=== PATIENT | male | born 1975 | race Caucasian/White ===

== ENCOUNTER 2016-11-29 17:57 | Emergency (ER) | payer OTHER ==
[2016-11-29 18:01] VITALS: RESP 20
[2016-11-29] MEDS ORDERED: ORPHENADRINE 30 MG/ML 2 ML VIAL IM STA (18:51)
[2016-11-29] MEDS ORDERED: KETOROLAC 60 MG/2 ML VIAL IM STA (18:51)
[2016-11-29] MEDS ORDERED: ONDANSETRON ODT 4 MG TAB PO STA (18:51)
--- NOTE | 2016-11-29 18:54 | ED ---
General Adult HPI - General Chief complaint: Recheck/Abnormal Lab/Rx Stated complaint: neck pain Time Seen by Provider: 11/29/16 18:39 Source: patient, RN notes reviewed Mode of arrival: wheelchair Limitations: no limitations - History of Present Illness Initial comments: Patient 41-year-old male who presents emergency room today with chief complaint of increased nausea vomiting that began earlier today. Does admit to increased neck pain after an episode of vomiting. Does admit to a history of chronic neck pain. The muscles to the right side are increased. Does admit some mild numbness tingling going down to the right hand. Patient does admit to feeling nauseated. Admits that his daughters at home have some symptoms of nausea vomiting. He denies any other complaints. Patient denies any recent fever, chills, shortness of breath, chest pain, back pain, abdominal pain, dysuria or hematuria, constipation or diarrhea, headaches or visual changes, or any other complaints. - Related Data Previous Rx's Medication Instructions Recorded Ibuprofen [Motrin] 800 mg PO Q6HR PRN #30 tab 11/29/16 Ondansetron Odt [Zofran ODT] 4 mg PO Q8HR PRN #20 tab 11/29/16 Orphenadrine [Norflex] 100 mg PO Q12H #20 tablet.er 11/29/16 Allergies Allergy/AdvReac Type Severity Reaction Status Date / Time No Known Allergies Allergy Verified 11/29/16 18:53 Review of Systems ROS Statement: Those systems with pertinent positive or pertinent negative responses have been documented in the HPI. ROS Other: All systems not noted in ROS Statement are negative. Past Medical History Past Medical History: Mitral Valve Prolapse (MVP), Pneumonia Additional Past Medical History / Comment(s): PALPITAIONS, DDD C1-C2, FX LT ANKLE, LT WRIST CASTED ONLY, chronic neck and back pain uses marijuana History of Any Multi-Drug Resistant Organisms: None Reported Additional Past Surgical History / Comment(s): LT THUMB-TRIGGER FINGER SX. Additional Past Anesthesia/Blood Transfusion Reaction / Comment(s): CLAUSTERPHOBIA Past Psychological History: Depression Additional Psychological History / Comment(s): PT STATED MILD DEPRESSION. 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 Smoking Status: Never smoker Past Alcohol Use History: None Reported Past Drug Use History: Marijuana Additional Drug Use History / Comment(s): OCC MARIJUANA USE-LAST SMOKED FEW DAYS AGO - Past Family History Father Family Medical History: Myocardial Infarction ([place]) Additional Family Medical History / Comment(s): 5 STENTS Mother Family Medical History: Blood Disorder, Mitral Valve Prolapse (MVP) General Exam - General Exam Comments Initial Comments: General: The patient is awake and alert, in no distress, and does not appear acutely ill. Eye: Pupils are equal, round and reactive to light, extra-ocular movements are intact. No nystagmus. There is normal conjunctiva bilaterally. No signs of icterus. Ears, nose, mouth and throat: There are moist mucous membranes and no oral lesions. Neck: The neck is supple, there is no tenderness or JVD. Cardiovascular: There is a regular rate and rhythm. No murmur, rub or gallop is appreciated. Respiratory: Lungs are clear to auscultation, respirations are non-labored, breath sounds are equal. No wheezes, stridor, rales, or rhonchi. Gastrointestinal: Soft, non-distended, non-tender abdomen without masses or organomegaly noted. There is no rebound or guarding present. No CVA tenderness. Bowel sounds are unremarkable. Musculoskeletal: Patient does have normal appearance of cervical, thoracic, lumbar spine. No step-offs form is appreciated. Patient does have increased tearing tenderness to the paravertebral areas rate on the right than the left cervical spine. Strength 5/5. Sensation intact. Pulses equal bilaterally 2+. Neurological: A&O x 3. CN II-XII intact, There are no obvious motor or sensory deficits. Coordination appears grossly intact. Speech is normal. Skin: Skin is warm and dry and no rashes or lesions are noted. Psychiatric: Cooperative, appropriate mood & affect, normal judgment. Limitations: no limitations Course Vital Signs 11/29/16 11/29/16 17:59 19:19 Temperature 98.2 F 98.7 F Pulse Rate 78 62 Respiratory 20 20 Rate Blood Pressure 111/59 108/66 O2 Sat by Pulse 100 100 Oximetry Medical Decision Making - Medical Decision Making Patient reexamined at this time shows no signs of distress. Does not that his nausea is improved and neck is feeling better. He declined any x-rays of his neck here in the emergency room. Patient will be discharged home on muscle relaxant, anti-inflammatories Zofran for nausea. Advised return to emergency room if symptoms increase worsen or for any other concerns. Disposition Clinical Impression: Nausea & vomiting, Neck pain Disposition: HOME SELF-CARE Condition: Good Instructions: Acute Nausea and Vomiting (ED) Additional Instructions: Please use medication as discussed. Please follow-up with family doctor in the next 2 days of symptoms have not improved. Please return to emergency room if the symptoms increase or worsen or for any other concerns. Prescriptions: Ibuprofen [Motrin] 800 mg PO Q6HR PRN #30 tab PRN Reason: Pain Ondansetron Odt [Zofran ODT] 4 mg PO Q8HR PRN #20 tab PRN Reason: Nausea Orphenadrine [Norflex] 100 mg PO Q12H #20 tablet.er Time of Disposition: 19:29
[2016-11-29 19:22] VITALS: BP 108/66; PULSE 62; TEMP 98.7
== END 2016-11-29 19:56 | disposition home or self-care (01) ==
LOC: EC 17:57
DX: M54.2 Cervicalgia (principal); R11.2 Nausea with vomiting, unspecified; R20.0 Anesthesia of skin
CPT/HCPCS: 99283; 96372 ×2; J2360; J1885

== ENCOUNTER 2016-12-23 13:24 | Observation (INO) | payer OTHER ==
[2016-12-23] MEDS ORDERED: ASPIRIN 325 MG TAB PO STA (14:53)
[2016-12-23] MEDS ORDERED: fentaNYL (PF) 50 MCG/ML 2 ML AMP IV ONE (14:54)
[2016-12-23 15:21] LABS: Basophils % (A) 0 %; CH 31.2; CHCM 34.5; Eosinophils # (A) 0.1 k/uL (0-0.7); Eosinophils % (A) 2 %; HCT 45.3 % (39.0-53.0); HDW 2.41; HGB 15.6 gm/dL (13.0-17.5); Luc # (Auto) 0.12; Luc % (Auto) 2; Lymphocytes # (A) 1.5 k/uL (1.0-4.8); Lymphocytes % (A) 23 %; MCH 31.2 pg (25.0-35.0); MCHC 34.4 g/dL (31.0-37.0); MCV 90.7 fL (80.0-100.0); Mean Platelet Volume 9.1; Monocytes # (A) 0.3 k/uL (0-1.0); Monocytes % (A) 4 %; Neutrophils # (A) 4.5 k/uL (1.3-7.7); Neutrophils % (A) 69 %; RDW 12.2 % (11.5-15.5); WBC 6.6 k/uL (3.8-10.6); WBC (Perox) 6.51
[2016-12-23 15:30] LABS: Partial Thromboplastin Time 22.9 sec (22.0-30.0); Prothrombin Time 10.5 sec (9.0-12.0)
[2016-12-23 15:31] LABS: Anion Gap 5 mmol/L; Blood Urea Nitrogen 17 mg/dL (9-20); Calcium 9.8 mg/dL (8.4-10.2); Carbon Dioxide 27 mmol/L (22-30); Chloride 107 mmol/L (98-107); Glucose 88 mg/dL (74-99); Non-African American GFR(MDRD) >60 (>60 ml/min/1.73 sqM); Potassium 4.1 mmol/L (3.5-5.1); Sodium 139 mmol/L (137-145)
--- NOTE | 2016-12-23 15:36 | CT ---
EXAMINATION TYPE: CT brain wo con DATE OF EXAM: 12/23/2016 3:23 PM COMPARISON: 12/19/2015 HISTORY: Rt sided weakness CT DLP: 1021.2 mGycm Automated exposure control for dose reduction was used. FINDINGS: The ventricles have normal size. There is no mass effect nor midline shift. There is no sign of intra cranial hemorrhage. The calvarium is intact. IMPRESSION: Negative unenhanced head CT scan. No adverse change compared to last exam.
--- NOTE | 2016-12-23 15:37 | XR ---
EXAMINATION TYPE: XR chest 2V DATE OF EXAM: 12/23/2016 3:25 PM COMPARISON: 12/29/2015 HISTORY: Chest pain TECHNIQUE: Frontal and lateral views of the chest are obtained. FINDINGS: Heart and mediastinum are normal. Lungs are clear. Diaphragm is normal. Bony thorax appear s normal. IMPRESSION: Normal chest. No change.
[2016-12-23] MEDS ORDERED: KETOROLAC 30 MG/ML 1 ML VIAL IVP PRN (16:42)
[2016-12-23] MEDS ORDERED: MORPHINE SULFATE 4 MG/ML SYRINGE IV PRN (16:42)
[2016-12-23] MEDS ORDERED: NALOXONE 0.4 MG/ML 1 ML VIAL IV PRN (16:42)
[2016-12-23] MEDS ORDERED: ONDANSETRON 4 MG/2 ML VIAL IVP PRN (16:42)
--- NOTE | 2016-12-23 16:42 | ED ---
General Adult HPI - General Chief complaint: Chest Pain Stated complaint: Chest Pain Time Seen by Provider: 12/23/16 14:26 Source: patient Mode of arrival: wheelchair Limitations: no limitations - History of Present Illness Initial comments: 41-year-old male with a significant past medical history of CVA and myocardial infarctions presented for evaluation of right-sided weakness for the last 4 days and substernal chest pain for the last 2 days. He states that about a year ago he had a CVA resulting in right-sided weakness. Since then he has had improvement in his weakness but never followed up with a neurologist. 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 He states the chest pain is substernal without any radiation and he described as a pressure for which he has not tried any treatments. There is associated shortness of breath and nausea but no vomiting. He further states he has not been following up with a peanut grader since his [place]. - Related Data Home Medications Medication Instructions Recorded Confirmed No Known Home Medications [No 12/23/16 12/23/16 Known Home Medications] Allergies Allergy/AdvReac Type Severity Reaction Status Date / Time No Known Allergies Allergy Verified 12/23/16 14:57 Review of Systems ROS Statement: Those systems with pertinent positive or pertinent negative responses have been documented in the HPI. ROS Other: All systems not noted in ROS Statement are negative. Constitutional: Denies: fever, chills Eyes: Denies: eye pain, eye discharge ENT: Denies: ear pain, throat pain Respiratory: Reports: dyspnea. Denies: cough, wheezes, hemoptysis Cardiovascular: Reports: chest pain, palpitations, dyspnea on exertion. Denies : orthopnea, edema, syncope Endocrine: Denies: fatigue, polydipsia, polyuria Gastrointestinal: Reports: nausea. Denies: abdominal pain, vomiting, diarrhea, constipation Genitourinary: Denies: urgency, dysuria Musculoskeletal: Denies: back pain, myalgia Skin: Denies: rash, lesions Neurological: Denies: headache, weakness Psychiatric: Denies: anxiety, depression Past Medical History Past Medical History: CVA/TIA, Mitral Valve Prolapse (MVP), Pneumonia Additional Past Medical History / Comment(s): PALPITAIONS, DDD C1-C2, FX LT ANKLE, LT WRIST CASTED ONLY, chronic neck and back pain uses marijuana History of Any Multi-Drug Resistant Organisms: None Reported Additional Past Surgical History / Comment(s): LT THUMB-TRIGGER FINGER SX. Additional Past Anesthesia/Blood Transfusion Reaction / Comment(s): CLAUSTERPHOBIA Past Psychological History: Depression Additional Psychological History / Comment(s): PT STATED MILD DEPRESSION. 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 Smoking Status: Never smoker Past Alcohol Use History: None Reported Past Drug Use History: Marijuana Additional Drug Use History / Comment(s): OCC MARIJUANA USE-LAST SMOKED FEW DAYS AGO - Past Family History Father Family Medical History: Myocardial Infarction ([place]) Additional Family Medical History / Comment(s): 5 STENTS Mother Family Medical History: Blood Disorder, Mitral Valve Prolapse (MVP) General Exam Limitations: no limitations General appearance: alert, in no apparent distress Head exam: Present: atraumatic, normocephalic, normal inspection Eye exam: Present: normal appearance, PERRL, EOMI. Absent: scleral icterus, conjunctival injection, periorbital swelling ENT exam: Present: normal exam, mucous membranes moist Neck exam: Present: normal inspection. Absent: tenderness, meningismus, lymphadenopathy Respiratory exam: Present: normal lung sounds bilaterally. Absent: respiratory distress, wheezes, rales, rhonchi, stridor Cardiovascular Exam: Present: regular rate, normal rhythm, normal heart sounds. Absent: systolic murmur, diastolic murmur, rubs, gallop, clicks GI/Abdominal exam: Present: soft, normal bowel sounds. Absent: distended, tenderness, guarding, rebound, rigid Rectal exam: Present: deferred Extremities exam: Present: normal inspection, full ROM, normal capillary refill. Absent: tenderness, pedal edema, joint swelling, calf tenderness Back exam: Present: normal inspection Neurological exam: Present: alert, oriented X3, CN II-XII intact, normal gait, motor sensory deficit, reflexes normal, other (NIH score of 2) Expanded Neurological exam: Absent: inattentive, memory loss-remote event, memory loss- recent event, ataxia, receptive aphasia, expressive aphasia, total aphasia, tremor, protecting the airway Patient oriented to: Present: person, place, time Speech: Present: fluid speech Cranial nerves: EOM's Intact: Normal, Tongue Deviation: Normal, Facial Sensation : Normal, Facial Palsy with Forehead Movement: Normal, Facial Palsy without Forehead Movement: Normal Eye Response: (4) open spontaneously Motor Response: (6) obeys commands Verbal Response: (5) oriented Psychiatric exam: Present: normal affect, normal mood Skin exam: Present: warm, dry, intact, normal color. Absent: rash Course Vital Signs 12/23/16 12/23/16 12/23/16 13:42 17:05 17:55 Temperature 98.1 F 98.1 F 98 F Pulse Rate 94 60 74 Respiratory 20 20 16 Rate Blood Pressure 108/73 107/55 110/71 O2 Sat by Pulse 99 100 100 Oximetry Medical Decision Making - Medical Decision Making 41-year-old male with past medical history of CVA and [place] presented for evaluation of right-sided weakness for the last 4 days and social chest pain for the last 2 days. He has not been following up with his neurologist or peanut grader since his acute events. On physical examination he does have weakness on the right side compared to the left NIH score of 2. Given that his symptoms started 4 days ago he is outside the treatment range with TPA. We'll obtain CT head, chest x-ray, EKG, labs, and provided aspirin and IV fluids. Labs revealed no significant abnormalities. CT head showed no acute process. Chest x-ray showed no acute process. Patient was reevaluated and had some improvement in his symptoms with fentanyl and aspirin. Given the significance of his symptoms and his past medical history will admit for further evaluation and treatment. Primary team was updated on the status of the patient and accepted admission with request for consults with neurology and cardiology. Patient was informed of all these plans and agreed. Admission order placed in bed request submitted. - Lab Data Result diagrams: 12/23/16 15:03 12/23/16 15:03 Lab Results 12/23/16 12/23/16 12/23/16 Range/Units 15:03 15:03 15:03 WBC 6.6 (3.8-10.6) k/uL RBC 5.00 (4.30-5.90) m/uL Hgb 15.6 (13.0-17.5) gm/dL Hct 45.3 (39.0-53.0) % MCV 90.7 (80.0-100.0) fL MCH 31.2 (25.0-35.0) pg MCHC 34.4 (31.0-37.0) g/dL RDW 12.2 (11.5-15.5) % Plt Count 155 (150-450) k/uL Neutrophils % 69 % Lymphocytes % 23 % Monocytes % 4 % Eosinophils % 2 % Basophils % 0 % Neutrophils # 4.5 (1.3-7.7) k/uL Lymphocytes # 1.5 (1.0-4.8) k/uL Monocytes # 0.3 (0-1.0) k/uL Eosinophils # 0.1 (0-0.7) k/uL Basophils # 0.0 (0-0.2) k/uL PT (9.0-12.0) sec INR (<1.1) APTT (22.0-30.0) sec Sodium 139 (137-145) mmol/L Potassium 4.1 (3.5-5.1) mmol/L Chloride 107 (98-107) mmol/L Carbon Dioxide 27 (22-30) mmol/L Anion Gap 5 mmol/L BUN 17 (9-20) mg/dL Creatinine 1.00 (0.66-1.25) mg/dL Est GFR (MDRD) Af Amer >60 (>60 ml/min/1.73 sqM) Est GFR (MDRD) Non-Af >60 (>60 ml/min/1.73 sqM) Glucose 88 (74-99) mg/dL Calcium 9.8 (8.4-10.2) mg/dL Troponin I (0.000-0.034) ng/mL NT-Pro-B Natriuret Pep pg/mL Influenza Type A RNA Not Detected (Not Detectd) Influenza Type B (PCR) Not Detected (Not Detectd) 12/23/16 12/23/16 12/23/16 Range/Units 15:03 15:03 15:03 WBC (3.8-10.6) k/uL RBC (4.30-5.90) m/uL Hgb (13.0-17.5) gm/dL Hct (39.0-53.0) % MCV (80.0-100.0) fL MCH (25.0-35.0) pg MCHC (31.0-37.0) g/dL RDW (11.5-15.5) % Plt Count (150-450) k/uL Neutrophils % % Lymphocytes % % Monocytes % % Eosinophils % % Basophils % % Neutrophils # (1.3-7.7) k/uL Lymphocytes # (1.0-4.8) k/uL Monocytes # (0-1.0) k/uL Eosinophils # (0-0.7) k/uL Basophils # (0-0.2) k/uL PT 10.5 (9.0-12.0) sec INR 1.0 (<1.1) APTT 22.9 (22.0-30.0) sec Sodium (137-145) mmol/L Potassium (3.5-5.1) mmol/L Chloride (98-107) mmol/L Carbon Dioxide (22-30) mmol/L Anion Gap mmol/L BUN (9-20) mg/dL Creatinine (0.66-1.25) mg/dL Est GFR (MDRD) Af Amer (>60 ml/min/1.73 sqM) Est GFR (MDRD) Non-Af (>60 ml/min/1.73 sqM) Glucose (74-99) mg/dL Calcium (8.4-10.2) mg/dL Troponin I <0.012 (0.000-0.034) ng/mL NT-Pro-B Natriuret Pep 28 pg/mL Influenza Type A RNA (Not Detectd) Influenza Type B (PCR) (Not Detectd) Disposition Clinical Impression: Chest pain, Right sided weakness Disposition: ADMITTED IP TO THIS [facility] Decision to Admit Reason: Admit from EC Decision Date: 12/23/16 Decision Time: 16:42
[2016-12-23] MEDS: 0.9% NACL WITH KCL 20 MEQ/L 1,000 ML IV SCH (18:02)
[2016-12-23] MEDS ORDERED: ALPRAZolam 0.25 MG TAB PO PRN (22:56)
[2016-12-23] MEDS ORDERED: TEMAZEPAM 15 MG CAP PO PRN (22:58)
[2016-12-23] MEDS ORDERED: ACETAMINOPHEN TAB 500 MG TAB PO PRN (22:58)
[2016-12-23] MEDS: HYDROcodone/APAP 5-325MG 1 EACH TAB PO PRN (23:12)
[2016-12-24 06:40] LABS: Basophils % (A) 1 %; CH 30.8; CHCM 33.9; Eosinophils # (A) 0.3 k/uL (0-0.7); Eosinophils % (A) 6 %; HCT 43.5 % (39.0-53.0); HDW 2.33; HGB 14.6 gm/dL (13.0-17.5); Luc # (Auto) 0.14; Luc % (Auto) 2; Lymphocytes # (A) 1.8 k/uL (1.0-4.8); Lymphocytes % (A) 31 %; MCH 30.5 pg (25.0-35.0); MCHC 33.6 g/dL (31.0-37.0); MCV 90.9 fL (80.0-100.0); Mean Platelet Volume 8.1; Monocytes # (A) 0.2 k/uL (0-1.0); Monocytes % (A) 4 %; Neutrophils # (A) 3.3 k/uL (1.3-7.7); Neutrophils % (A) 56 %; RBC 4.79 m/uL (4.30-5.90); RDW 12.3 % (11.5-15.5); WBC 5.9 k/uL (3.8-10.6)
[2016-12-24 06:57] LABS: Anion Gap 9 mmol/L; Blood Urea Nitrogen 18 mg/dL (9-20); Calcium 9.1 mg/dL (8.4-10.2); Carbon Dioxide 27 mmol/L (22-30); Chloride 107 mmol/L (98-107); Cholesterol 135 mg/dL (<200); Glucose 89 mg/dL (74-99); HDL Cholesterol 37 mg/dL (40-60); Magnesium 2.1 mg/dL (1.6-2.3); Non-African American GFR(MDRD) >60 (>60 ml/min/1.73 sqM); Potassium 4.1 mmol/L (3.5-5.1); Sodium 143 mmol/L (137-145); Triglycerides 63 mg/dL (<150)
[2016-12-24] MEDS ORDERED: DOBUTamine DRIP for NUC MED 500 MG in DEXTROSE/WATER 1 250ML.BAG IV ONE (08:14)
--- NOTE | 2016-12-24 10:45 | HP ---
DATE OF ADMISSION: 12/23/2016. CHIEF COMPLAINT: Weakness on the right side of the body and chest pain. HISTORY OF PRESENT ILLNESS: This 41-year-old gentleman with a past medical history of TIA, history of mitral prolapse, history of palpitations, history of THC, history of trigger finger, history of depression, being followed by Dr. Walter in the outpatient setting, was noted to have numbness and weakness of the right side of the body. Patient was unable to move the right. The patient also has chest pain, which was diffusely felt in the anterior part of the chest. The patient came to [facility] and was admitted for further evaluation. CT scan did not show acute abnormality. Troponins negative. Influenza negative also. No previous history or family history of stroke. PAST MEDICAL HISTORY: History of CVA, TIA, mitral valve prolapse, history of pneumonia, palpitation, depression not otherwise specified. MEDICATIONS PRIOR TO ADMISSION: None. ALLERGIES: None. FAMILY HISTORY: History of myocardial infarction and stents in the family. SOCIAL HISTORY: No history of smoking, no significant alcohol use. Medical marijuana. REVIEW OF SYSTEMS: ENT: No diminished hearing. CARDIOVASCULAR: No angina. Chest pain as mentioned earlier. RESPIRATORY: No cough. GI: No nausea or vomiting. : No dysuria. NERVOUS SYSTEM: No numbness or weakness. ALLERGY/IMMUNOLOGY: No asthma or hayfever. MUSCULOSKELETAL: As mentioned earlier. HEMATOLOGY/ONCOLOGY: As mentioned. ENDOCRINE: No history of diabetes. CONSTITUTIONAL: Negative. DERMATOLOGIC: Negative. PSYCHIATRIC: As mentioned earlier. PHYSICAL EXAMINATION: GENERAL: The patient is alert, oriented x3. VITAL SIGNS: Pulse 60, blood pressure 99/66, respirations 16, temperature 99, pulse 99% on room air. HEENT: Conjunctivae normal. Oral mucosa moist. NECK: No JVD. No lymph node enlargement. CARDIOVASCULAR: S1 and S2, muffled. No S3 or S4. Breath sounds are diminished at the bases. No rhonchi, no crackles. ABDOMEN: Soft, nontender. EXTREMITIES: Legs no edema. NERVOUS SYSTEM: As aforementioned. Power and sensation grossly intact. Minimal weakness in the right upper and lower limbs present, 3/4. Reflexes are diminished. SKIN: No ulcer or rash. LYMPHATICS: No lymph nodes palpable in the neck, axillae or groin. LABS: CBC within normal limits. INR 1. CMP and influenza negative. ASSESSMENT: 1. Right-sided weakness, rule out transient ischemic attack. 2. Chest pain for evaluation, possibly musculoskeletal. 3. History of mitral valve prolapse. 4. History of cerebrovascular accident, transient ischemic attack. 5. History of pneumonia. 6. History of palpitations. 7. History of claustrophobia. 8. History of depression. 9. History of THC. 10. FULL CODE. RECOMMENDATIONS AND DISCUSSION: In this 41-year-old gentleman who presented with multiple complex medical issues, we will monitor the patient closely, continue the current medications and symptomatic treatment. Otherwise, at this time I recommend to continue with current medication and antiplatelet agents. Neuro workup with Neurology and Cardiology consultation. Guarded prognosis because of multiple complex medical issues. Further recommendations to follow. MTDD
[2016-12-24 11:05] LABS: Appearance,Urine Clear (Clear); Bilirubin,Urine Negative (Negative); Glucose,Urine (UA) Negative (Negative); Ketones,Urine Negative (Negative); Leukocyte Esterase,Urine Negative (Negative); Mucus,Urine Many /hpf; Nitrite,Urine Negative (Negative); PH, Urine 6.5 (5.0-8.0); Particle Count 12400; Protein,Urine 1+ (Negative); Specific Gravity,Urine 1.026 (1.001-1.035); Sperm,Urine Occasional /hpf; Squamous Epithelial Cell,Urine <1 /hpf (0-4); UA Billing (MACRO vs. MICRO) MICRO; Urobilinogen,Urine <2.0 mg/dL (<2.0); WBC,Urine 1 /hpf (0-5)
--- NOTE | 2016-12-24 14:47 | CONS ---
DATE OF CONSULTATION: Wilder Leiva is a 41-year-old young man admitted to the hospital by Dr. Maxwell. Consultation requested by Dr. Maxwell. Consultation is needed for cardiac evaluation and treatment. Patient is admitted to the hospital with right-sided weakness and precordial chest pain for the last 2 to 3 years. Patient is not on any medications prior to admission. Patient apparently claims he is pretty active and exercises on a regular basis. Patient has depression and dyslexia. He claims to have a similar right-sided weakness about 8/10 which improved completely, to return only in the last [address] of the brain was normal without any evidence of acute bleed or hypodensity or any aspirate. He is a nonsmoker, but uses marijuana. Patient denies any drug abuse. Patient claims has been having chest pressure, precordial area on a scale of 1 to 10, 4/10, constant pressure, mild percussion, does not decrease which is there all the time for the last 3 or 4 days which appears to be unlikely cardiac or anginal type of symptoms. Patient while in the hospital has been on alprazolam, hydrocodone, Toradol, morphine, Naloxone, potassium, Restoril. HOME MEDICATIONS: None. REVIEW OF SYSTEMS: Essentially unremarkable other than what is stated in the presenting illness. The patient apparently had right-sided weakness which improved completely and returned back into normal 2 to 3 days ago and history of mitral valve prolapse. History of [place] in the past, never been treated or seen any physician. Patient's lipid panels are within normal limits. The LDL of 85, total cholesterol of 135, triglycerides 163, HDL is low 37. EKG shows normal sinus rhythm, normal ST-T waves. Troponin x1 is negative. Physical examination revealed well-developed, well-nourished 41-year-old gentleman, not in acute distress, oriented x3 with a pulse rate of 60 beats per minute and regular, blood pressure 99/60, respirations of 16. Head normocephalic. HEENT unremarkable. Neck is supple. No thyroid enlargement. No bruit noted. Good carotid upstroke bilaterally. Chest is symmetrical. CARDIAC EXAMINATION: Regular rate and rhythm, S1 and S2. Lungs are clinically clear to auscultation and percussion. Abdomen is soft, no organomegaly. Active bowel sounds. EXTREMITIES: Peripheral pulses. No pedal edema. 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 Patient's troponin x1 is negative, ( ) is unremarkable. ASSESSMENT: 1. Prolonged precordial chest pressure, atypical chest pain. 2. History of mitral valve prolapse. 3. Right-sided weakness. RECOMMENDATIONS: Will get an echocardiogram to assess LV function and possibly dobutamine stress echocardiogram without any cardiac source of any ischemia which is really low probability and will have a neurologist take care of the neurological problems.
--- NOTE | 2016-12-24 15:34 | ECHOS ---
DATE OF SERVICE: 12/24/2016 AGE: 41Y SEX: M HT: 69" WT: 161 lbs. Protocol Glenn: Others: Stage: Dur. of Exercise: 10 *Heart Rate Blood Pressure *Rest: 55 Rest: 107/60 * *Max. Achieved: 154 Maximum BP: 160/49 85% PMHR: 154 100% PMHR: 181 *METS: INDICATIONS: Chest pain. MEDICATIONS: None. Baseline rhythm is sinus mechanism, rate of 55, normal axis and intervals. Normal electrocardiogram. Baseline blood pressure 107/60 mmHg. Patient received an infusion of dobutamine per protocol reaching peak rate of 154 beats per minute, which is equal to 85% maximum predicted heart rate; peak blood pressure 160/49 millimeters Hg. Electrocardiograph monitoring revealed no evidence of diagnostic ischemic ST deviation. FINDINGS: Baseline echocardiogram revealed normal wall motion. At peak exercise there was normal wall motion augmentation with no hypokinesis or dyskinesis. CONCLUSION: 1. Normal electrocardiograph response to dobutamine infusion. 2. Normal stress echocardiogram with no evidence of stress-induced ischemia.
[2016-12-24] MEDS: 0.9% NACL WITH KCL 20 MEQ/L 1,000 ML IV SCH (16:36)
--- NOTE | 2016-12-24 19:38 | P.CNNES ---
History of Present Illness Consult date: 12/24/16 Reason for Consult: Patient with right sided weakness. History of Present Illness: This patient is a 41-year-old right-handed white male who was admitted to hospital yesterday with symptoms of severe chest pain and right-sided weakness. Patient states that he suffered a stroke a year ago in October 2015. This caused him to have significant right-sided weakness as well as speech impairment. He recovered from this over the last year and was doing quite well until about 3 days ago when he started to notice slurring of his speech and very slow speech output. This was noted by his girlfriend who was there at bedside. She states is speech still is not normal. He was advised after her stroke to take one aspirin daily but has not been taking any medications. He states that since the last 3 days he has noted right arm weakness which is the same type of weakness he first experienced a year ago when he suffered a stroke. The patient was also seen today by cardiology for severe chest pain. He was found to have evidence of mitral valve prolapse. He was sent for echocardiogram today and we are waiting those results. 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 He said due to the weakness of his right arm now he feels he is unable to do any work. We have recommended that he be further evaluated for possibility of left hemispheric TIA versus stroke. He was sent for a computed tomography scan of the brain yesterday which was reported negative and no evidence of any adverse change compared to last exam done on 12/19/2015. The patient states he has not been taking any medications. We suggested that he should be on 1 aspirin daily for secondary stroke prevention. He states he will start on this immediately. Neurology is now been consulted for further evaluation and recommendations. Review of Systems Constitutional: Denies chills, Denies fever Eyes: denies blurred vision, denies pain Ears, nose, mouth and throat: Denies headache, Denies sore throat Cardiovascular: Reports orthopnea, Denies chest pain, Denies shortness of breath Respiratory: Denies cough Gastrointestinal: Denies abdominal pain, Denies diarrhea, Denies nausea, Denies vomiting Musculoskeletal: Denies myalgias Integumentary: Denies pruritus, Denies rash Neurological: Reports change in speech, Reports motor disturbance, Reports paresthesias, Denies numbness, Denies weakness Psychiatric: Denies anxiety, Denies depression Endocrine: Denies fatigue, Denies weight change Past Medical History Past Medical History: CVA/TIA, Mitral Valve Prolapse (MVP), Pneumonia Additional Past Medical History / Comment(s): PALPITAIONS, DDD C1-C2, FX LT ANKLE, LT WRIST CASTED ONLY, chronic neck and back pain uses marijuana History of Any Multi-Drug Resistant Organisms: None Reported Additional Past Surgical History / Comment(s): LT THUMB-TRIGGER FINGER SX. Past Anesthesia/Blood Transfusion Reactions: No Reported Reaction Additional Past Anesthesia/Blood Transfusion Reaction / Comment(s): CLAUSTERPHOBIA Past Psychological History: Depression Additional Psychological History / Comment(s): PT STATED MILD DEPRESSION. 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 Smoking Status: Never smoker Past Alcohol Use History: None Reported Past Drug Use History: Marijuana Additional Drug Use History / Comment(s): OCC MARIJUANA USE-LAST SMOKED FEW DAYS AGO - Past Family History Father Family Medical History: Myocardial Infarction ([place]) Additional Family Medical History / Comment(s): 5 STENTS Mother Family Medical History: Blood Disorder, Mitral Valve Prolapse (MVP) Medications and Allergies Home Medications Medication Instructions Recorded Confirmed Type No Known Home Medications [No 12/23/16 12/23/16 History Known Home Medications] Allergies Allergy/AdvReac Type Severity Reaction Status Date / Time No Known Allergies Allergy Verified 12/23/16 14:57 Physical Examination - Vital Signs Vital Signs: Vital Signs Temp Pulse Pulse Resp BP BP Pulse Ox 12/24/16 16:00 97.6 F 74 18 108/66 98 12/24/16 12:00 97.0 F L 69 18 100/67 98 12/24/16 08:00 96.8 F L 66 18 112/76 98 12/24/16 04:00 97.9 F 56 L 18 84/52 98 12/24/16 00:00 98.2 F 60 16 95/50 98 12/23/16 20:00 99 F 60 16 99/60 99 12/23/16 18:38 98.2 F 71 16 120/80 97 12/23/16 17:55 98 F 74 16 110/71 100 Intake and Output 12/24/16 12/24/16 12/24/16 06:59 14:59 22:59 Intake Total 0 Balance 0 Intake: Oral 0 Other: Weight 73.2 kg - Constitutional General appearance: average body habitus, cooperative - EENT EENT: mucous membranes moist - Respiratory Respiratory: lungs clear, normal breath sounds - Cardiovascular Cardiovascular: regular rate, normal S1, normal S2 Extremities: no peripheral edema bilaterally - Gastrointestinal Gastrointestinal: normoactive bowel sounds - Integumentary Integumentary: normal - Neurologic Cranial nerve examination: PERRL, EOMI, VFF, V1/V2/V3 grossly intact, face symmetric, tongue midline, intact gag reflex, intact corneal reflex, normal palatal elevation Speech examination: motor aphasia Sensorimotor examination: intact Motor examination - right side: 3/5: wrist extension, nursery rn, 4/5: biceps, triceps , wrist flexion, hip flexors, knee extensors, dorsiflexion, toe extension (EHL) , plantarflexion Motor examination - left side: 5/5: biceps, triceps, wrist flexion, wrist extension, nursery rn, hip flexors, knee extensors, dorsiflexion, toe extension (EHL) , plantarflexion Detailed sensory examination: intact Reflex and gait examination: intact Reflexes: 1+: ankle, bicep, knee, tricep - Musculoskeletal Musculoskeletal: no pain - Psychiatric Psychiatric: mood/affect appropriate, cooperative Results - Laboratory Findings CBC and BMP: 12/24/16 06:19 12/24/16 06:19 Abnormal Lab Findings: Abnormal Labs 12/24/16 12/24/16 12/24/16 06:19 06:19 10:25 Plt Count 142 L HDL Cholesterol 37 L Urine Protein 1+ H Urine Mucus Many H Urine Sperm Occasional H Urine Opiates Screen Detected H U Marijuana (THC) Screen Detected H Assessment and Plan (1) TIA involving left internal carotid artery Status: Acute Code(s): G45.1 - CAROTID ARTERY SYNDROME (HEMISPHERIC) (2) Left acute arterial ischemic stroke, MCA (middle cerebral artery) Status: Acute Code(s): I63.512 - CEREB INFRC D/T UNSP OCCLS OR STENOS OF LEFT MID CEREB ART (3) Chest pain Status: Acute Code(s): R07.9 - CHEST PAIN, UNSPECIFIED (4) Expressive aphasia Status: Acute Code(s): R47.01 - APHASIA Plan: This patient is a 41-year-old male admitted with 3 day history of significant right-sided hemiparesis and weakness. Patient had a history of stroke in October 2015 which left him with right-sided hemiparesis. He made very good recovery from his stroke but 3 days ago developed new onset of right arm and leg weakness. He also had severe chest pain and was brought into the emergency room yesterday for further evaluation. He underwent a computed tomography scan of the brain which failed to reveal any acute changes. Was read as negative unenhanced computed tomography scan of the brain with no adverse changes compared to previous exam done on 11/20/2015. Patient was essentially admitted to the hospital. Since his last stroke he has not been taking any aspirin. We would recommend he be started on one baby aspirin daily for secondary stroke prevention. We would recommend MRI of the brain for further evaluation. He would also benefit from physical therapy consultation. He is being evaluated by cardiology for severe atypical chest pain. We're waiting further recommendations from cardiology. His overall prognosis at this time remains very guarded. We will continue close neurological follow-up for the patient. Time with Patient: Greater than 30
[2016-12-24] MEDS: ASPIRIN 81 MG CHEW PO SCH (20:38)
--- NOTE | 2016-12-24 22:20 | PN ---
DATE OF SERVICE: 12/24/2016 This 41-year-old gentleman who was admitted with weakness over the right side of the body and chest pain is being scheduled to have a stress test today. Neurology evaluation in progress. No fever. No cough. On exam, alert and oriented x3. Pulse 74, blood pressure 108/66, respiration 18, temperature 97.6, pulse ox 98% on room air. HEENT: Conjunctivae normal. NECK: No jugular venous distention. CARDIOVASCULAR SYSTEM: S1, S2 muffled. RESPIRATORY SYSTEM: Breath sounds diminished at the bases. No rhonchi. No crackles. ABDOMEN: Soft, non-tender. LEGS: No edema. No swelling. NERVOUS SYSTEM: Minimal weakness on the right side present. LABS: HDL is 37. Otherwise, urine THC is positive. ASSESSMENT: 1. Weakness of the right side; possible acute transient ischemic attack. 2. Chest pain for evaluation; rule out coronary artery disease; possibly musculoskeletal. 3. History of mitral valve prolapse. 4. Cerebrovascular accident, transient ischemic attack. 5. History of pneumonia. 6. History of palpitations. 7. History of claustrophobia. 8. History of depression. 9. History of tetrahydrocannabinol. 10. FULL CODE. RECOMMENDATIONS AND DISCUSSION: I recommend to continue with the current medications, continue with symptomatic treatment. Otherwise, stress test. Closely monitor. Follow with Cardiology. Guarded prognosis. Further recommendations to follow.
[2016-12-24] MEDS: HYDROcodone/APAP 5-325MG 1 EACH TAB PO PRN (22:55)
--- NOTE | 2016-12-25 07:46 | MR ---
EXAMINATION TYPE: MR brain wo con DATE OF EXAM: 12/25/2016 6:36 AM COMPARISON: NONE HISTORY: Right sided weakness Multiplanar and multispin-echo imaging of the brain was performed . The ventricles, basal cisterns and sulci overlying the cerebral convexities are within normal limits. There is no evidence for midline shift or mass effect. Acute intracranial hemorrhage or extra-axial collection is not evident. The brain parenchyma reveals no abnormal increased signal. No acute edema is identified. The paranasal sinuses and mastoid air cells are well-aerated. Small incidental mucous retention cyst left maxillary sinus. IMPRESSION: Unremarkable MRI of the brain.
[2016-12-25] MEDS ORDERED: SODIUM CHLORIDE 0.9% 1,000 ML IV SCH (08:30)
[2016-12-25] MEDS: ASPIRIN 81 MG CHEW PO SCH (09:05)
--- NOTE | 2016-12-25 12:14 | P.PN ---
Subjective Principal diagnosis: Chest pain This is a 41-year-old patient seen in consultation yesterday by Dr. Simmons. Patient presented to the hospital with symptoms of right-sided weakness with associated precordial chest pain. He underwent a dobutamine echocardiographic study yesterday that was negative for any reversible ischemia. His troponins have been negative, EKG did not show significant changes. Currently in neurology workup is in progress. Objective - Vital Signs Vital signs: Vital Signs Temp 97.0 F L 12/25/16 11:20 Pulse 73 12/25/16 11:20 Resp 14 12/25/16 11:20 BP 106/67 12/25/16 11:20 Pulse Ox 98 12/25/16 11:20 Intake & Output 12/24/16 12/25/16 12/25/16 18:59 06:59 18:59 Intake Total 444 550 90 Balance 444 550 90 Weight 73.1 kg Intake: IV 550 0.9% NaCl with KCl 20 Meq 550 /l 1,000 ml @ 50 mls/hr IV .Q20H [facility] Rx#: [id number] Oral 444 90 Other: Voiding Method Toilet Toilet # Voids 1 0 - Exam PHYSICAL EXAMINATION: HEENT: Head is atraumatic, normocephalic. Pupils equal, round. Neck is supple. There is no elevated jugular venous pressure. HEART EXAMINATION: Heart S1, S2 normal. No murmur or gallop heard. CHEST EXAMINATION: Lungs are clear to auscultation and precussion. No chest wall tenderness is noted on palpation or with deep breathing. ABDOMEN: Soft, nontender. Bowel sounds are heard. No organomegaly noted. EXTREMITIES: 2+ peripheral pulses with no evidence of peripheral edema and no calf tenderness noted. NEUROLOGIC patient is awake, alert and oriented -3. Patient is noted to have tattoos over his entire body. . - Labs CBC & Chem 7: 12/24/16 06:19 12/24/16 06:19 Assessment and Plan (1) Treadmill stress test negative for angina pectoris Status: Acute (2) Right sided weakness Status: Acute (3) Anxiety disorder Status: Acute (4) Chest pain Status: Acute Plan: From cardiology's perspective, we will follow this patient with you now on an as -needed basis only, please don't hesitate to call with any questions. DNP note has been reviewed, I agree with a documented findings and plan of care. Patient was seen and examined.
--- NOTE | 2016-12-25 12:51 | ECHOF ---
Referral Reason:lv function MEASUREMENTS -------- HEIGHT: 175.3 cm WEIGHT: 75.3 kg BP: RVIDd: 2.9 cm (< 3.3) IVSd: 0.8 cm (0.6 - 1.1) LVIDd: 4.6 cm (3.9 - 5.3) LVPWd: 0.6 cm (0.6 - 1.1) IVSs: 1.0 cm LVIDs: 4.2 cm LVPWs: 0.8 cm LA Diam: 2.4 cm (2.7 - 3.8) Ao Diam: 3.3 cm (2.0 - 3.7) AV Cusp: 2.3 cm (1.5 - 2.6) LA Diam: 3.4 cm (2.7 - 3.8) MV EXCURSION: 18.043 mm (> 18.000) MV EF SLOPE: 130 mm/s (70 - 150) EPSS: 1.0 cm MV E Osman: 0.81 m/s MV DecT: 208 ms MV A Osman: 0.50 m/s MV E/A Ratio: 1.61 RAP: 5.00 mmHg RVSP: 14.67 mmHg FINDINGS -------- Sinus rhythm. This was a technically adequate study. The left ventricular size is normal. Left ventricular wall thickness is normal. Overall left ventricular systolic function is normal with, an EF between 55 - 60 %. The right ventricle is normal in size. The left atrial size is normal. The right atrial size is normal. The aortic valve is trileaflet and appears structurally normal. There is no evidence of aortic regurgitation. The mitral valve is normal. No mitral regurgitation. Mild tricuspid regurgitation present. Right ventricular systolic pressure is normal at < 35 mmHg. There is no evidence of pulmonary hypertension. There is no pulmonic regurgitation present. The aortic root size is normal. There is no pericardial effusion. CONCLUSIONS -------- 1. Sinus rhythm. 2. There is no pulmonic regurgitation present. 3. There is no pericardial effusion. 4. This was a technically adequate study. 5. Left ventricular wall thickness is normal. 6. Overall left ventricular systolic function is normal with, an EF between 55 - 60 %. 7. The left atrial size is normal. 8. The aortic valve is trileaflet and appears structurally normal. 9. No mitral regurgitation. 10. Mild tricuspid regurgitation present. 11. Right ventricular systolic pressure is normal at < 35 mmHg. [employer]ARD[employer] WASTE TECHNICIAN: Mckenna Lau RDCS
[2016-12-25 16:16] VITALS: BP 108/71; PULSE 76; RESP 16; TEMP 97.9
--- NOTE | 2016-12-25 17:12 | P.DS ---
Providers Date of admission: 12/23/16 16:42 Attending physician: Nato Maxwell Consults: 12/24/16 16:57 Consult Physician Routine Consulting Provider: Sheree Ball Consult Reason/Comments: CVA Do you want consulting provider notified?: Yes Primary care physician: Saba Sherman [facility] Course: Is a 41-year-old gentleman that was seen on the day of discharge. Patient was admitted to the hospital complains of chest pressure and one-vessel worsening of right-sided weakness. Patient apparently has had a stroke over year ago apparently underwent workup which did not reveal any abnormalities. Patient at the time of admission was not even on aspirin or statin. Patient denies using any illicit drugs. Patient initially underwent a dobutamine stress test for his chest pain which did not reveal any reversible ischemia. EKG was within normal limits. Patient was also evaluated by our neurology team. MRI of the brain was done which was normal. Echocardiogram did not reveal any wall motion abnormalities no atrial fibrillation was noted on his stay. On the day of discharge physical exam was Gen. appearance alert oriented 3 in no distress HEENT head is atraumatic normocephalic pupils are equal round and reactive light and accommodation Neck is supple no JVD Lungs good air movement clear to auscultation no rhonchi or wheezing appreciated Heart S1-S2 heard regular rate and rhythm no murmurs appreciable Abdomen soft nontender no organomegaly Lower extremity is no edema noted. Neuro cranial nerves to till 12 grossly intact right upper and lower x-ray strength is 3-4 out of 5 left upper and lower extremity strength is 5 out of 5 #1 atypical chest pain, ACS is ruled out #2 history of CVA with right-sided weakness with a transient ischemic attack at the time Plan Risk stratification was done patient will be started on aspirin and statin. Patient will be discharged home to follow up with neurology on an outpatient basis. MRI was negative. Patient continues to have similar episodes there may be some benefit of patient having implantable monitor to rule out underlying atrial fibrillation. Plan - Discharge Summary New Discharge Prescriptions: Aspirin 81 mg PO DAILY #30 chew Atorvastatin [Lipitor] 40 mg PO DAILY #30 tablet Discharge Medication List Aspirin 81 mg PO DAILY #30 chew 12/25/16 [Rx] Atorvastatin [Lipitor] 40 mg PO DAILY #30 tablet 12/25/16 [Rx] Follow up Appointment(s)/Referral(s): Diamond Walter MD [Primary Care Provider] - 1-2 days (PLEASE CALL FOR APPOINTMENT TIME WHEN OFFICE OPEN) Sheree Ball MD [STAFF PHYSICIAN] - 1 Week (CALL FOR APPOINTMENT TIME WHEN OFFICE IS OPEN) Patient Instructions/Handouts: Ischemic Stroke (DC) Discharge Disposition: HOME SELF-CARE
--- NOTE | 2016-12-25 17:25 | P.PN ---
Subjective This patient is a 41-year-old right-handed white male who was seen yesterday on neurology consultation for evaluation of right-sided weakness. Patient has a history of having suffered a stroke last October 2015. He states he had residual right-sided hemiparesis as well as speech impairment. He made a very good recovery from the stroke. He was not taking aspirin on any regular basis following the stroke. 3 days prior to admission he noted increase symptoms of right hand weakness. He was also complaining of severe retrosternal chest pain. He was admitted hospital for further evaluation. He was seen in consultation yesterday and showed evidence of right arm drift and weakness in the right upper extremity. He was recommended MRI of the brain for further evaluation of recurrent stroke. He was seen by cardiology for evaluation of chest pain and angina symptoms. Treadmill test was negative. Cardiology has signed off of his case today. Patient was sent for MRI of the brain today for further evaluation. Results of the MRI indicate unremarkable MRI of the brain with no evidence of acute stroke. Patient was recommended to continue with physical therapy as he does have right hand weakness. This is to be continued in the outpatient setting. We did review the results of the MRI today in detail. We will continue the patient on aspirin daily for secondary stroke prevention. He is being considered for possible discharge home Objective - Vital Signs Vital signs: Vital Signs Temp 97.9 F 12/25/16 16:00 Pulse 76 12/25/16 16:00 Resp 16 12/25/16 16:00 BP 108/71 12/25/16 16:00 Pulse Ox 98 12/25/16 16:00 Intake & Output 12/24/16 12/25/16 12/25/16 18:59 06:59 18:59 Intake Total 444 550 730 Balance 444 550 730 Weight 73.1 kg Intake: IV 550 0.9% NaCl with KCl 20 Meq 550 /l 1,000 ml @ 50 mls/hr IV .Q20H [facility] Rx#: [id number] Intake, IV Titration 400 Amount Sodium Chloride 0.9% 1, 400 000 ml @ 50 mls/hr IV . Q20H [facility] Rx#:[id number] Oral 444 330 Other: Voiding Method Toilet Toilet # Voids 1 1 # Bowel Movements 0 - Exam Physical examination: PHYSICAL EXAMINATION: Patient is resting comfortably in bed. VITAL SIGNS: Blood pressure is [107/67]. Heart rate is [73]. Respiration is [14] . Temperature is [97.0]. HEENT: Head is atraumatic, neck is supple, there were no carotid bruits. CHEST: Lungs are clear to auscultation and percussion. CARDIAC: S1, S2 normal rate and rhythm. There is no murmur. ABDOMEN: Soft and nontender. Bowel sounds are present. EXTREMITIES: There is no pedal edema. Peripheral pulses are present. Neurological examination: Patient's neurological examination is unchanged from yesterday. Patient continues to have effort related weakness involving right upper extremity. 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 Remaining neurological examination is nonfocal. - Labs CBC & Chem 7: 12/24/16 06:19 12/24/16 06:19 Assessment and Plan (1) TIA involving left internal carotid artery Status: Acute Code(s): G45.1 - CAROTID ARTERY SYNDROME (HEMISPHERIC) (2) Left acute arterial ischemic stroke, MCA (middle cerebral artery) Status: Acute Code(s): I63.512 - CEREB INFRC D/T UNSP OCCLS OR STENOS OF LEFT MID CEREB ART (3) Chest pain Status: Acute Code(s): R07.9 - CHEST PAIN, UNSPECIFIED (4) Expressive aphasia Status: Acute Code(s): R47.01 - APHASIA Plan: Patient being evaluated for right-sided weakness and possible acute stroke. He has a history of having suffered a stroke about 1 year ago. He was sent for MRI of the brain today for results of which were reviewed. MRI is reported negative for any acute stroke or hemorrhage. He was seen by cardiology who has discharged him as well with no clear evidence of cardiac cause for chest pain and angina. We recommend he continue on 1 aspirin daily for secondary stroke prevention. We recommend he continue with outpatient physical therapy for right arm weakness. Patient is being considered for discharge home later today. He may follow-up in the outpatient neurology clinic as needed. His overall prognosis at this time remains very guarded.
== END 2016-12-25 18:13 | disposition home or self-care (01) ==
LOC: EC 13:24 → INTOOBSV 16:42 → 6SEL 16:42
PROVIDERS: ADMIT Internal Medicine; ATTEND Internal Medicine
DX: G45.1 Carotid artery syndrome (hemispheric) (principal); R07.89 Other chest pain; R47.01 Aphasia; I69.328 Other speech and language deficits following cerebral infarction; I69.351 Hemiplegia and hemiparesis following cerebral infarction affecting right dominant side; F32.9 Major depressive disorder, single episode, unspecified; F40.240 Claustrophobia; I34.1 Nonrheumatic mitral (valve) prolapse; R48.0 Dyslexia and alexia; F12.90 Cannabis use, unspecified, uncomplicated; G89.29 Other chronic pain; M54.2 Cervicalgia; M54.9 Dorsalgia, unspecified; Z87.01 Personal history of pneumonia (recurrent); Z82.49 Family history of ischemic heart disease and other diseases of the circulatory system; Z79.82 Long term (current) use of aspirin; Z79.899 Other long term (current) drug therapy
CPT/HCPCS: 99285; 96375; 36415; 93005; 93017; 93306; 93350; 97161; 83880; 80061; 80048 ×2; 83735; 84484; 85025 ×2; 85610; 85730; 81001; 80306; 87502; 71020; 70450; 70551; G0378 ×3; J1250; J3010; 96365; 96366

== ENCOUNTER 2017-12-18 00:28 | Emergency (ER) | payer OTHER ==
[2017-12-18 00:36] VITALS: RESP 18; TEMP 97.6
[2017-12-18] MEDS ORDERED: ORPHENADRINE 30 MG/ML 2 ML VIAL IM STA (00:51)
[2017-12-18] MEDS ORDERED: KETOROLAC 30 MG/ML 1 ML VIAL IM STA (00:51)
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
[2017-12-18] MEDS ORDERED: ONDANSETRON ODT 4 MG TAB PO STA (01:20)
--- NOTE | 2017-12-18 01:37 | CT ---
EXAMINATION TYPE: CT cervical spine wo con DATE OF EXAM: 12/18/2017 COMPARISON: NONE HISTORY: Neck pain CT DLP: 556.30 mGycm Automated exposure control for dose reduction was used. TECHNIQUE: CT scan of the cervical spine is obtained without contrast, axial images are obtained, sa gittal and coronal reformatted images are also reviewed. FINDINGS: The cervical vertebra have normal spacing and alignment. Posterior elements are intact. Sku ll base is intact. Facet joints are intact. There is minor spurring anteriorly at C5-6 and C6-7. IMPRESSION: Minor spurring in the lower cervical spine. Otherwise negative exam. No fracture.
[2017-12-18 02:40] VITALS: BP 126/80; PULSE 72
== END 2017-12-18 02:38 | disposition home or self-care (01) ==
LOC: EC 00:28
DX: M54.2 Cervicalgia (principal); R51 Headache; M46.02 Spinal enthesopathy, cervical region; I69.351 Hemiplegia and hemiparesis following cerebral infarction affecting right dominant side
CPT/HCPCS: 72125; 99283; 96372 ×2; J2360; J1885

== ENCOUNTER 2019-05-27 10:06 | Emergency (ER) | payer OTHER ==
[2019-05-27 10:11] VITALS: BP 103/72; PULSE 76; RESP 16; TEMP 97.5
--- NOTE | 2019-05-27 10:37 | ED ---
Lower Extremity Injury HPI - General Chief Complaint: Extremity Injury, Lower Stated Complaint: rt knee injury Time Seen by Provider: 05/27/19 10:16 Source: patient, RN notes reviewed Mode of arrival: ambulatory Limitations: no limitations - History of Present Illness Initial Comments: 43-year-old male presents emergency Department with chief complaint right knee pain. Patient states he days ago he stepped in a hole in his backyard states he twisted his knee. Patient states that the bump on the front of his knees states that was not there prior. Patient states it's painful to ambulate denies any swelling denies any prior knee issues to this injury. No paresthesias no hip pain no ankle pain. - Related Data Previous Rx's Medication Instructions Recorded Aspirin 81 mg PO DAILY #30 chew 12/25/16 Ibuprofen [Motrin] 600 mg PO Q8HR PRN #30 tab 05/27/19 Allergies Allergy/AdvReac Type Severity Reaction Status Date / Time No Known Allergies Allergy Verified 05/27/19 10:16 Review of Systems ROS Statement: Those systems with pertinent positive or pertinent negative responses have been documented in the HPI. ROS Other: All systems not noted in ROS Statement are negative. Past Medical History Past Medical History: CVA/TIA, Mitral Valve Prolapse (MVP), Pneumonia Additional Past Medical History / Comment(s): PALPITAIONS, DDD C1-C2, FX LT ANKLE, LT WRIST CASTED ONLY, chronic neck and back pain uses marijuana History of Any Multi-Drug Resistant Organisms: None Reported Additional Past Surgical History / Comment(s): LT THUMB-TRIGGER FINGER SX. Past Anesthesia/Blood Transfusion Reactions: No Reported Reaction Additional Past Anesthesia/Blood Transfusion Reaction / Comment(s): CLAUSTERPHOBIA Past Psychological History: Depression Smoking Status: Never smoker Past Alcohol Use History: None Reported Past Drug Use History: Marijuana - Past Family History Father Family Medical History: Myocardial Infarction ([place]) Additional Family Medical History / Comment(s): 5 STENTS Mother Family Medical History: Blood Disorder, Mitral Valve Prolapse (MVP) General Exam Limitations: no limitations General appearance: alert, in no apparent distress Head exam: Present: atraumatic, normocephalic, normal inspection Eye exam: Present: normal appearance, PERRL, EOMI. Absent: scleral icterus, conjunctival injection, periorbital swelling Respiratory exam: Present: normal lung sounds bilaterally. Absent: respiratory distress, wheezes, rales, rhonchi, stridor Cardiovascular Exam: Present: regular rate, normal rhythm, normal heart sounds. Absent: systolic murmur, diastolic murmur, rubs, gallop, clicks Extremities exam: Present: other (Right knee there is a palpable hard lump over the patella which is not mobile though does move with patellar movement. There is no laxity no localized tenderness otherwise neurovascular intact no pain above or below the knee) Skin exam: Present: warm, dry, intact, normal color. Absent: rash Course Vital Signs 05/27/19 10:08 Temperature 97.5 F L Pulse Rate 76 Respiratory 16 Rate Blood Pressure 103/72 O2 Sat by Pulse 98 Oximetry Medical Decision Making - Medical Decision Making 43-year-old male presented to emergency for right knee pain. X-rays obtained no acute fracture or malalignment. Patient's symptoms were consistent with right knee sprain. He does have some constipation tendon. Patient will be discharged and follow-up with PCP and orthopedics as necessary if symptoms persist. Disposition Clinical Impression: Knee sprain Disposition: HOME SELF-CARE Condition: Stable Instructions (If sedation given, give patient instructions): Knee Sprain (ED) Additional Instructions: Please return to the Emergency Department if symptoms worsen or any other concerns. Prescriptions: Ibuprofen [Motrin] 600 mg PO Q8HR PRN #30 tab PRN Reason: Pain Is patient prescribed a controlled substance at d/c from ED?: No Referrals: Diamond Walter MD [Primary Care Provider] - 1-2 days Smith Castillo MD [STAFF PHYSICIAN] - 1-2 days Time of Disposition: 11:17
--- NOTE | 2019-05-27 11:09 | XR ---
EXAMINATION TYPE: XR knee 4V RT DATE OF EXAM: 05/27/2019 COMPARISON: None HISTORY: Knee pain, twisted leg stepped in hole TECHNIQUE: 4 view right knee FINDINGS: Joint spaces are preserved. No acute fractures or dislocations are evident. No joint effusi on is evident. IMPRESSION: 1. Normal three-view right knee. 2. Follow-up exams can be performed 7-10 days from acute trauma for continued pain.
== END 2019-05-27 11:42 | disposition home or self-care (01) ==
LOC: EC 10:06
DX: S83.91XA Sprain of unspecified site of right knee, initial encounter (principal); R22.41 Localized swelling, mass and lump, right lower limb; F12.90 Cannabis use, unspecified, uncomplicated; Z87.81 Personal history of (healed) traumatic fracture; X50.1XXA Overexertion from prolonged static or awkward postures, initial encounter; Y93.01 Activity, walking, marching and hiking; Y92.89 Other specified places as the place of occurrence of the external cause
CPT/HCPCS: 99283

== ENCOUNTER 2019-06-10 10:50 | Inpatient (IN) | payer OTHER ==
[2019-06-10] MEDS ORDERED: SODIUM CHLORIDE 0.9% 1,000 ML IV STA (11:29)
--- NOTE | 2019-06-10 11:32 | ED ---
Neuro HPI - General Chief Complaint: Syncope Stated Complaint: Rt side weakness/syncope Time Seen by Provider: 06/10/19 11:10 Source: patient, RN notes reviewed, old records reviewed Mode of arrival: wheelchair Limitations: no limitations - History of Present Illness Is the patient presenting with stroke symptoms?: Yes Last Known Well Date: 06/08/19 -: days(s) Initial Comments: This is a 43-year-old male the ER for evaluation presents today for evaluation regards to few complaints, patient complains of right arm weakness surgery by family members right leg weakness. Patient states he has history of CVA with no lasting deficits. Family history of heart disease family history of CVA. Patient himself denies have blood pressure cholesterol diabetes, smokes marijuana medically but not cigarettes. Patient is recent travel history no sick contacts no significant headaches. Denies alcohol. No other drugs. Patient states is no symptoms for a few days now. Family members including son, telling him his speech seems to be slurred. Present to his family doctor's office today who told him against and sound like his speech was off patient then also admits to right leg and right arm weakness Location: speech, right arm, right leg History of same: Yes (Resolved prior symptoms) Place: home Severity: mild Quality: weak Improves With: none Worsens With: none On Anticoagulants: Yes (Aspirin) Context: gradual onset Associated Symptoms: denies other symptoms Treatments Prior to Arrival: none - Related Data Home Medications: Previous Rx's Medication Instructions Recorded Aspirin 81 mg PO DAILY #30 chew 12/25/16 Allergies/Adverse Reactions: Allergies Allergy/AdvReac Type Severity Reaction Status Date / Time No Known Allergies Allergy Verified 06/10/19 11:08 Review of Systems ROS Statement: Those systems with pertinent positive or pertinent negative responses have been documented in the HPI. ROS Other: All systems not noted in ROS Statement are negative. General Exam - General Exam Comments Initial Comments: NIH of 3 Limitations: no limitations General appearance: alert, in no apparent distress Head exam: Present: atraumatic, normocephalic, normal inspection Eye exam: Present: normal appearance, PERRL, EOMI. Absent: scleral icterus, conjunctival injection, periorbital swelling ENT exam: Present: normal exam, mucous membranes moist Neck exam: Present: normal inspection. Absent: tenderness, meningismus, l ymphadenopathy Respiratory exam: Present: normal lung sounds bilaterally. Absent: respiratory distress, wheezes, rales, rhonchi, stridor Cardiovascular Exam: Present: regular rate, normal rhythm, normal heart sounds. Absent: systolic murmur, diastolic murmur, rubs, gallop, clicks GI/Abdominal exam: Present: soft, normal bowel sounds. Absent: distended, tenderness, guarding, rebound, rigid Extremities exam: Present: normal inspection, full ROM, normal capillary refill. Absent: tenderness, pedal edema, joint swelling, calf tenderness Back exam: Present: normal inspection Neurological exam: Present: alert, oriented X3, CN II-XII intact Psychiatric exam: Present: normal affect, normal mood Skin exam: Present: warm, dry, intact, normal color. Absent: rash Stroke MDM - Lab Data Result diagrams: 06/10/19 11:22 06/10/19 11:22 Lab Results 06/10/19 06/10/19 06/10/19 Range/Units 11:22 11:22 11:22 WBC 7.1 (3.8-10.6) k/uL RBC 5.06 (4.30-5.90) m/uL Hgb 15.5 (13.0-17.5) gm/dL Hct 45.4 (39.0-53.0) % MCV 89.8 (80.0-100.0) fL MCH 30.6 (25.0-35.0) pg MCHC 34.1 (31.0-37.0) g/dL RDW 12.8 (11.5-15.5) % Plt Count 153 (150-450) k/uL Neutrophils % 67 % Lymphocytes % 22 % Monocytes % 5 % Eosinophils % 4 % Basophils % 1 % Neutrophils # 4.7 (1.3-7.7) k/uL Lymphocytes # 1.6 (1.0-4.8) k/uL Monocytes # 0.3 (0-1.0) k/uL Eosinophils # 0.3 (0-0.7) k/uL Basophils # 0.1 (0-0.2) k/uL PT 9.6 (9.0-12.0) sec INR 0.9 (<1.2) APTT 24.8 (22.0-30.0) sec Sodium 141 (137-145) mmol/L Potassium 4.2 (3.5-5.1) mmol/L Chloride 103 (98-107) mmol/L Carbon Dioxide 29 (22-30) mmol/L Anion Gap 9 mmol/L BUN 16 (9-20) mg/dL Creatinine 1.04 (0.66-1.25) mg/dL Est GFR (CKD-EPI)AfAm >90 (>60 ml/min/1.73 sqM) Est GFR (CKD-EPI)NonAf 89 (>60 ml/min/1.73 sqM) Glucose 92 (74-99) mg/dL Calcium 9.9 (8.4-10.2) mg/dL Phosphorus 3.5 (2.5-4.5) mg/dL Magnesium 2.0 (1.6-2.3) mg/dL Total Bilirubin 0.6 (0.2-1.3) mg/dL AST 27 (17-59) U/L ALT 40 (21-72) U/L Alkaline Phosphatase 64 (38-126) U/L Creatine Kinase 84 (55-170) U/L Troponin I (0.000-0.034) ng/mL Total Protein 7.6 (6.3-8.2) g/dL Albumin 4.8 (3.5-5.0) g/dL 06/10/19 Range/Units 11:22 WBC (3.8-10.6) k/uL RBC (4.30-5.90) m/uL Hgb (13.0-17.5) gm/dL Hct (39.0-53.0) % MCV (80.0-100.0) fL MCH (25.0-35.0) pg MCHC (31.0-37.0) g/dL RDW (11.5-15.5) % Plt Count (150-450) k/uL Neutrophils % % Lymphocytes % % Monocytes % % Eosinophils % % Basophils % % Neutrophils # (1.3-7.7) k/uL Lymphocytes # (1.0-4.8) k/uL Monocytes # (0-1.0) k/uL Eosinophils # (0-0.7) k/uL Basophils # (0-0.2) k/uL PT (9.0-12.0) sec INR (<1.2) APTT (22.0-30.0) sec Sodium (137-145) mmol/L Potassium (3.5-5.1) mmol/L Chloride (98-107) mmol/L Carbon Dioxide (22-30) mmol/L Anion Gap mmol/L BUN (9-20) mg/dL Creatinine (0.66-1.25) mg/dL Est GFR (CKD-EPI)AfAm (>60 ml/min/1.73 sqM) Est GFR (CKD-EPI)NonAf (>60 ml/min/1.73 sqM) Glucose (74-99) mg/dL Calcium (8.4-10.2) mg/dL Phosphorus (2.5-4.5) mg/dL Magnesium (1.6-2.3) mg/dL Total Bilirubin (0.2-1.3) mg/dL AST (17-59) U/L ALT (21-72) U/L Alkaline Phosphatase (38-126) U/L Creatine Kinase (55-170) U/L Troponin I <0.012 (0.000-0.034) ng/mL Total Protein (6.3-8.2) g/dL Albumin (3.5-5.0) g/dL - NIH Stroke Scale 1a. Level of Consciousness: (0) alert 1b. LOC Questions: (0) answers correctly 1c. LOC Commands: (0) performs tasks correctly 2. Best Gaze: (0) normal 3. Visual: (0) no visual loss 4. Facial Palsy: (0) normal symmetrical movement 5a. Motor Arm Left: (0) no drift 5b. Motor Arm Right: (1) drift 6a. Motor Leg Left: (0) no drift 6b. Motor Leg Right: (1) drift 7. Limb Ataxia: (0) absent 8. Sensory: (0) normal 9. Best Language: (0) no aphasia 10. Dysarthria: (1) mild/moderate dysarthria 11. Extinction/Inattention: (0) no abnormality - Thrombolytic Inclusion/Exclusion Thrombolytic Exclusion Criteria: Symptom Onset > 3 Hours - Medical Decision Making 43 male the ER with history of CVA coming in with CVA today third speech right- sided weakness. Patient will be admitted for neurological evaluation - Radiology Data Radiology results: report reviewed (CT brain CTA had not negative for acute disease), image reviewed - EKG Data -: EKG Interpreted by Me (EKG shows normal sinus rhythm rate of 61, FL 140, QRS 74, QTC 418) Past Medical History Past Medical History: CVA/TIA, Mitral Valve Prolapse (MVP), Pneumonia Additional Past Medical History / Comment(s): PALPITAIONS, DDD C1-C2, FX LT ANKLE, LT WRIST CASTED ONLY, chronic neck and back pain uses marijuana History of Any Multi-Drug Resistant Organisms: None Reported Additional Past Surgical History / Comment(s): LT THUMB-TRIGGER FINGER SX. Past Anesthesia/Blood Transfusion Reactions: No Reported Reaction Additional Past Anesthesia/Blood Transfusion Reaction / Comment(s): CLAUSTERPHOBIA Past Psychological History: Depression Smoking Status: Never smoker Past Alcohol Use History: None Reported Past Drug Use History: Marijuana - Past Family History Father Family Medical History: Myocardial Infarction ([place]) Additional Family Medical History / Comment(s): 5 STENTS Mother Family Medical History: Blood Disorder, Mitral Valve Prolapse (MVP) Course Vital Signs 06/10/19 06/10/19 10:55 12:11 Temperature 97.9 F 98.2 F Pulse Rate 76 60 Respiratory 18 18 Rate Blood Pressure 117/77 117/76 O2 Sat by Pulse 100 97 Oximetry - Reevaluation(s) Reevaluation #1: 06/10/19 12:58 Medical records reviewed including multiple recent MRIs and MRAs Reevaluation #2: 06/10/19 12:59 Patient still feels uncomfortable going home was in a for neurology to evaluate Disposition Clinical Impression: Vasovagal syncope, CVA (cerebral vascular accident), TIA involving left internal carotid artery Disposition: ADMITTED IP TO THIS [facility] Condition: Undetermined Is patient prescribed a controlled substance at d/c from ED?: No Referrals: Diamond Walter MD [Primary Care Provider] - 1-2 days
[2019-06-10 11:51] LABS: Basophils # (A) 0.1 k/uL (0-0.2); Basophils % (A) 1 %; Eosinophils # (A) 0.3 k/uL (0-0.7); Eosinophils % (A) 4 %; HCT 45.4 % (39.0-53.0); HGB 15.5 gm/dL (13.0-17.5); Lymphocytes # (A) 1.6 k/uL (1.0-4.8); Lymphocytes % (A) 22 %; MCH 30.6 pg (25.0-35.0); MCHC 34.1 g/dL (31.0-37.0); MCV 89.8 fL (80.0-100.0); Mean Platelet Volume 8.3; Monocytes # (A) 0.3 k/uL (0-1.0); Monocytes % (A) 5 %; Neutrophils # (A) 4.7 k/uL (1.3-7.7); Neutrophils % (A) 67 %; Platelet Count 153 k/uL (150-450); RBC 5.06 m/uL (4.30-5.90); RDW 12.8 % (11.5-15.5); WBC 7.1 k/uL (3.8-10.6)
[2019-06-10 11:59] LABS: INR 0.9 (<1.2); Partial Thromboplastin Time 24.8 sec (22.0-30.0); Prothrombin Time 9.6 sec (9.0-12.0)
[2019-06-10 12:01] LABS: ALT 40 U/L (21-72); AST 27 U/L (17-59); African American GFR (CKD) >90 (>60 ml/min/1.73 sqM); Albumin 4.8 g/dL (3.5-5.0); Alkaline Phosphatase 64 U/L (38-126); Anion Gap 9 mmol/L; Blood Urea Nitrogen 16 mg/dL (9-20); Calcium 9.9 mg/dL (8.4-10.2); Carbon Dioxide 29 mmol/L (22-30); Chloride 103 mmol/L (98-107); Creatine Kinase 84 U/L (55-170); Glucose 92 mg/dL (74-99); Phosphorus 3.5 mg/dL (2.5-4.5); Potassium 4.2 mmol/L (3.5-5.1); Sodium 141 mmol/L (137-145); Total Bilirubin 0.6 mg/dL (0.2-1.3); Total Protein 7.6 g/dL (6.3-8.2)
--- NOTE | 2019-06-10 12:09 | CT ---
EXAMINATION TYPE: CT brain wo con for TPA DATE OF EXAM: 06/10/2019 COMPARISON: 12/23/2016 HISTORY: 43-year-old male Right sided weakness. history of CVA TECHNIQUE: Examination was done in axial plane without intravenous contrast. Coronal and sagittal r econstructions performed. CT DLP: Not provided Automated exposure control for dose reduction was used. FINDINGS: There is no evidence of acute intracranial hemorrhage, acute ischemic changes, mass, mass-effect, or extra-axial fluid collection. There is no effacement of cerebral sulci or basal subarachnoid cister ns. There is no hydrocephalus. There is no midline shift. Brice-white matter distinction is preserv ed. Punctate density posterior left basal ganglionic region corresponds to some choroid plexus calcificat ions on coronal series, stable from 2017. Prominent leftward nasal septal deviation. Paranasal sinuses and mastoid air cells are well pneumatiz ed. Orbits and globes are intact. Tiny mucosal retention cyst posterior wall of the left maxillary si nus. IMPRESSION: No acute intracranial abnormality seen.
--- NOTE | 2019-06-10 12:11 | XR ---
EXAMINATION TYPE: XR chest 2V DATE OF EXAM: 06/10/2019 COMPARISON: 12/17/2016 HISTORY: Syncope. History of mitral valve replacement. TECHNIQUE: Frontal and lateral views of the chest are obtained. FINDINGS: There is no focal air space opacity, pleural effusion, or pneumothorax seen. The cardiac silhouette size is within normal limits. The osseous structures are intact. Mild multilevel degener ative changes of the spine. IMPRESSION: No acute cardiopulmonary process.
--- NOTE | 2019-06-10 12:13 | CT ---
EXAMINATION TYPE: CT angio head neck DATE OF EXAM: 06/10/2019 12:04 PM COMPARISON: CT head same day HISTORY: 43-year-old male with neurologic deficits, Right sided weakness. History of CVA. CT DLP: 386.3 mGycm Automated exposure control for dose reduction was used. TECHNIQUE: Head and neck exam performed with IV Contrast, patient injected with 65 mL of Isovue 370. Coronal and sagittal MIP reconstructions performed. 3-D reconstructions generated on a dedicated [employer] workstation. FINDINGS: Neck: Arch normal caliber with conventional branching anatomy. The vertebral arteries are codominant in patent throughout the course. The right common and internal carotid arteries are widely patent. The left common and internal carotid arteries are widely patent. Head: The vertebral, basilar, and internal carotid arteries are patent without significant stenosis or bonifacio rial occlusion. Remainder of the posterior and anterior circulation also appears patent. No aneurysmal change seen.. IMPRESSION: 1. NECK: THE VERTEBRAL AND CAROTID ARTERIES OF THE NECK ARE WIDELY PATENT. 2. HEAD: NO LARGE VESSEL INTRACRANIAL ARTERIAL OCCLUSION, SIGNIFICANT STENOSIS, OR ANEURYSMAL CHANGE SEEN.
[2019-06-10 12:56] LABS: Appearance,Urine Clear (Clear); Bilirubin,Urine Negative (Negative); Blood,Urine Negative (Negative); Color,Urine Colorless; Glucose,Urine (UA) Negative (Negative); Ketones,Urine Negative (Negative); Leukocyte Esterase,Urine Negative (Negative); Nitrite,Urine Negative (Negative); PH, Urine 6.5 (5.0-8.0); Protein,Urine Negative (Negative); Specific Gravity,Urine 1.022 (1.001-1.035); Urobilinogen,Urine <2.0 mg/dL (<2.0)
[2019-06-10 12:57] LABS: Amphetamine Screen,Urine Not Detected (NotDetected); Barbiturate Screen,Urine Not Detected (NotDetected); Cocaine Screen,Urine Not Detected (NotDetected); Methadone Screen, Urine Not Detected (NotDetected); Opiate Screen,Urine Not Detected (NotDetected); Oxycodone Screen, Urine Not Detected (NotDetected); Phencyclidine Screen,Urine Not Detected (NotDetected); Tricyclic Antidepressant,Urine Not Detected (NotDetected)
[2019-06-10] MEDS ORDERED: ASPIRIN 325 MG TAB PO STA (12:59)
[2019-06-10 13:09] LABS: Benzodiazepines Screen,Urine Not Detected (NotDetected)
[2019-06-10 13:10] LABS: Urn Cannabinoid Scrn Detected (NotDetected)
[2019-06-10] MEDS: SODIUM CHLORIDE 0.9% 1,000 ML IV SCH (13:22)
[2019-06-10] MEDS ORDERED: ACETAMINOPHEN TAB 500 MG TAB PO PRN (16:35)
[2019-06-10] MEDS ORDERED: TEMAZEPAM 15 MG CAP PO PRN (16:35)
[2019-06-10] MEDS ORDERED: ALPRAZolam 0.25 MG TAB PO PRN (16:35)
--- NOTE | 2019-06-10 20:40 | HP ---
HISTORY AND PHYSICAL CHIEF COMPLAINTS: Syncope and right-sided weakness. HISTORY OF PRESENT ILLNESS: This 43-year-old gentleman with a past medical history of CVA, TIA, history of mitral valve prolapse, history of syncope, history of orthopedic surgery, history of depression, being followed by Dr. Walter in the outpatient setting, presented to the ER with complaints of right arm weakness. Initially the patient also had right leg weakness. The patient also previously had history of CVA with no residual defects. The patient came to [facility] and was admitted for further evaluation and treatment. The initial stroke evaluation did not show any evidence of acute stroke. Vasovagal syncope was considered and the patient was admitted for further evaluation and treatment. A CT of the brain was also noted which showed no acute abnormality. A 2D echo with Doppler is underway. There is no history of fever, rigors, chills at this time. PAST MEDICAL HISTORY: 1. History of CVA, TIA. 2. Mitral valve prolapse. 3. History of pneumonia. 4. Syncope. 5. History of depression. MEDICATIONS: Medications prior to admission include aspirin 81 mg daily. ALLERGIES: NONE. FAMILY HISTORY: History of CAD, strokes, myocardial infarction in the family. SOCIAL HISTORY: Previous history of smoking. History of THC. REVIEW OF SYSTEMS: ENT: No diminished hearing. No diminished vision. CARDIOVASCULAR SYSTEM: As mentioned earlier. RESPIRATORY SYSTEM: As mentioned earlier. GI: No nausea, vomiting. : No dysuria or retention. NERVOUS SYSTEM: As mentioned earlier. ALLERGY/IMMUNOLOGY: No asthma, hayfever. MUSCULOSKELETAL: As mentioned earlier. HEMATOLOGY/ONCOLOGY: No history of anemia. ENDOCRINE: No history of diabetes, hypothyroidism. CONSTITUTIONAL: As mentioned earlier. DERMATOLOGY: Negative. RHEUMATOLOGY: Negative. PSYCHIATRY: As mentioned earlier. PHYSICAL EXAMINATION: Patient alert and oriented x3. Pulse 74, blood pressure 110/76, respirations 16, temperature 98.6, pulse ox 99% on room air. HEENT: Conjunctivae normal. Oral mucosa moist. NECK: No jugular venous distention. No carotid bruit. No lymph node enlargement. CARDIOVASCULAR SYSTEM: S1, S2 muffled. No S3. No S4. RESPIRATORY SYSTEM: Breath sounds diminished at the bases. No rhonchi. No crackles. ABDOMEN: Soft, non-tender. No mass palpable. LEGS: No edema. No swelling. NERVOUS SYSTEM: Higher functions as mentioned earlier. Cranial nerves 2 through 12 grossly intact. Minimal weakness of the right upper limb present. No other focal deficit. Minimal weakness of the right lower limb also present. SKIN: No ulcer, rash, bleeding. JOINTS: No active deforming arthropathy. LYMPHATICS: No lymph node palpable in neck, axillae or groin. LABS: CBC within normal limits. CMP within normal limits. Drug screen positive for THC. ASSESSMENT: 1. Weakness of the right side; possible acute transient ischemic attack. Rule out acute CVA and stroke. 2. Possible vasovagal syncope. 3. Tetrahydrocannabinol positive. 4. History of cerebrovascular accident, transient ischemic attack, with no residual defects. 5. History of mitral valve prolapse. 6. History of pneumonia. 7. History of degenerative joint disease. 8. C1-C2 compression fracture. 9. History of claustrophobia. 10.History of depression. 11.Remote history of nicotine dependence. 12.NO CODE, NO CPR, NO VENT. RECOMMENDATIONS AND DISCUSSION: In this 43-year-old gentleman who presented with multiple complex medical issues, we will monitor the patient closely, continue the current management, continue with symptomatic treatment. Anterior with antiplatelet agents. Neurovascular workup. Two-D echo has been ordered. I would also recommend cardiology and neurology consultations. The patient might also require a KARISHMA and MRI of the brain to complete the workup. Overall prognosis is guarded because of multiple complex medical issues. Further recommendations to follow. See orders for further details. A copy of this dictation is being forwarded to Dr. Walter, who is the primary physician. MMMARITOL / ABIOLAN: [id number] /
[2019-06-10] MEDS: HEPARIN SODIUM,PORCINE 5,000 UNIT/ML 1 ML VIAL SQ SCH (21:30)
[2019-06-10] MEDS: ATORVASTATIN 80 MG TAB PO SCH (21:31)
[2019-06-11] MEDS: SODIUM CHLORIDE 0.9% 1,000 ML IV SCH ×3 (05:36→18:09)
[2019-06-11] MEDS: PANTOPRAZOLE 40 MG TABLET PO SCH (06:16)
[2019-06-11] MEDS: HEPARIN SODIUM,PORCINE 5,000 UNIT/ML 1 ML VIAL SQ SCH ×2 (08:01→20:55)
[2019-06-11 08:08] LABS: Basophils # (A) 0.1 k/uL (0-0.2); Basophils % (A) 1 %; Eosinophils # (A) 0.2 k/uL (0-0.7); Eosinophils % (A) 4 %; HCT 45.4 % (39.0-53.0); HGB 15.5 gm/dL (13.0-17.5); Lymphocytes # (A) 1.5 k/uL (1.0-4.8); Lymphocytes % (A) 26 %; MCH 30.8 pg (25.0-35.0); MCHC 34.1 g/dL (31.0-37.0); MCV 90.2 fL (80.0-100.0); Mean Platelet Volume 8.8; Monocytes # (A) 0.3 k/uL (0-1.0); Monocytes % (A) 5 %; Neutrophils # (A) 3.6 k/uL (1.3-7.7); Neutrophils % (A) 61 %; Platelet Count 135 k/uL (150-450); RBC 5.03 m/uL (4.30-5.90); RDW 12.9 % (11.5-15.5); WBC 5.9 k/uL (3.8-10.6)
[2019-06-11 08:27] LABS: African American GFR (CKD) >90 (>60 ml/min/1.73 sqM); Anion Gap 7 mmol/L; Blood Urea Nitrogen 13 mg/dL (9-20); Calcium 8.8 mg/dL (8.4-10.2); Carbon Dioxide 28 mmol/L (22-30); Chloride 107 mmol/L (98-107); Cholesterol 185 mg/dL (<200); Glucose 90 mg/dL (74-99); HDL Cholesterol 27 mg/dL (40-60); LDL Cholesterol,Calculated 131 mg/dL (0-99); Sodium 142 mmol/L (137-145); Triglycerides 134 mg/dL (<150)
[2019-06-11] MEDS ORDERED: ASPIRIN 325 MG TAB PO SCH (09:00)
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
--- NOTE | 2019-06-11 12:58 | ECHOF ---
Referral Reason:tia?? MEASUREMENTS -------- HEIGHT: 175.3 cm WEIGHT: 86.2 kg BP: RVIDd: 3.8 cm (< 3.3) IVSd: 0.7 cm (0.6 - 1.1) LVIDd: 4.8 cm (3.9 - 5.3) LVPWd: 1.0 cm (0.6 - 1.1) IVSs: 2.0 cm LVIDs: 2.9 cm LVPWs: 1.1 cm LAESV Index (A-L): 11.00 ml/m Ao Diam: 3.0 cm (2.0 - 3.7) AV Cusp: 2.4 cm (1.5 - 2.6) LA Diam: 3.0 cm (2.7 - 3.8) MV EXCURSION: 21.171 mm (> 18.000) MV EF SLOPE: 148 mm/s (70 - 150) EPSS: 0.7 cm MV E Osman: 0.83 m/s MV DecT: 199 ms MV A Osman: 0.47 m/s MV E/A Ratio: 1.77 RAP: 5.00 mmHg RVSP: 13.79 mmHg FINDINGS -------- Sinus rhythm. This was a technically adequate study. The left ventricular size is normal. Left ventricular wall thickness is normal. Overall left vent ricular systolic function is low-normal with, an EF between 50 - 55 %. The right ventricle is mild to moderately enlarged. The left atrial size is normal. Normal LA size by volume 22+/-6 ml/m2. The right atrial size is normal. Interatrial and interventricular septum intact. The aortic valve is trileaflet and appears structurally normal. The mitral valve is normal. There is trace mitral regurgitation. The tricuspid valve appears structurally normal. Trace tricuspid regurgitation present. Right haley tricular systolic pressure is normal at < 35 mmHg. There is no pulmonic regurgitation present. The aortic root size is normal. IVC Not well visulized. There is no pericardial effusion. CONCLUSIONS -------- 1. Sinus rhythm. 2. This was a technically adequate study. 3. The left ventricular size is normal. 4. Left ventricular wall thickness is normal. 5. Overall left ventricular systolic function is low-normal with, an EF between 50 - 55 %. 6. The right ventricle is mild to moderately enlarged. 7. The left atrial size is normal. 8. Normal LA size by volume 22+/-6 ml/m2. 9. The right atrial size is normal. 10. Interatrial and interventricular septum intact. 11. The aortic valve is trileaflet and appears structurally normal. 12. The mitral valve is normal. 13. There is trace mitral regurgitation. 14. The tricuspid valve appears structurally normal. 15. Trace tricuspid regurgitation present. 16. Right ventricular systolic pressure is normal at < 35 mmHg. 17. There is no pulmonic regurgitation present. 18. The aortic root size is normal. 19. IVC Not well visulized. 20. There is no pericardial effusion. ENDLESS BELT FINISHER: Adina Salgado RDCS
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
--- NOTE | 2019-06-11 18:08 | PN ---
PROGRESS NOTE DATE OF SERVICE: 06/11/2019 This 43-year-old gentleman who was admitted with right-sided weakness, suspected to have a stroke. Cardiology and Neurology are following the patient closely. The patient was supposed to have a mitral valve prolapse previously. No chest pain. No palpitations. Past medical history reviewed. REVIEW OF SYSTEMS: CARDIOVASCULAR SYSTEM: No angina, palpitations. RESPIRATORY SYSTEM: As mentioned earlier. GI: As mentioned earlier. : No dysuria or retention. NERVOUS SYSTEM: No numbness, weakness. CURRENT MEDICATIONS: Reviewed. They include: 1. Tylenol 500 mg q.6 p.r.n. 2. Xanax 0.25 t.i.d. 3. Aspirin 81 mg. 4. Lipitor 80 mg at bedtime. 5. Heparin 5000 units subcutaneously b.i.d. 6. Protonix 40 mg. 7. Restoril 15 mg at bedtime p.r.n. PHYSICAL EXAMINATION: Patient is alert, oriented x3, mildly dysarthric. Pulse 76, blood pressure 121/80, respiration 18, temperature 97.9, pulse ox 99% on room air. HEENT: Conjunctivae normal. NECK: No jugular venous distention. CARDIOVASCULAR SYSTEM: S1, S2 muffled. RESPIRATORY SYSTEM: Breath sounds diminished at the bases. No rhonchi. No crackles. ABDOMEN: Soft, non-tender. LEGS: No edema. No swelling. Minimal weakness on the right side. NERVOUS SYSTEM: No focal deficit. LABS: WBC 5.9, platelets 135. LDL noted. THC positive. ASSESSMENT: 1. Weakness of the right side, possibly acute transient ischemic attack; rule out acute cerebrovascular accident and stroke. 2. Possible vasovagal syncope. 3. Tetrahydrocannabinol positive. 4. Hyperlipidemia with increased LDL. 5. History of cerebrovascular accident, transient ischemic attack with no residual deficits. 6. History of mitral valve prolapse. 7. History of pneumonia. 8. History of degenerative joint disease. 9. C1-C2 compression fracture history. 10.History of claustrophobia. 11.Depression. 12.Remote history of nicotine dependence. 13.NO CODE NO CPR, NO VENT. RECOMMENDATIONS AND DISCUSSION: I recommend to continue current medications, continue with the monitoring, symptomatic treatment. Will continue to monitor. Possible KARISHMA by Cardiology. Guarded prognosis because of multiple complex medical issues. Further recommendations to follow. MMODL / IJN: [id number] /
[2019-06-11] MEDS: ATORVASTATIN 80 MG TAB PO SCH (20:55)
[2019-06-12 06:51] LABS: Basophils # (A) 0.1 k/uL (0-0.2); Basophils % (A) 1 %; Eosinophils # (A) 0.3 k/uL (0-0.7); Eosinophils % (A) 4 %; HGB 16.4 gm/dL (13.0-17.5); Lymphocytes % (A) 25 %; MCH 30.9 pg (25.0-35.0); MCHC 34.1 g/dL (31.0-37.0); MCV 90.6 fL (80.0-100.0); Mean Platelet Volume 8.6; Monocytes # (A) 0.4 k/uL (0-1.0); Monocytes % (A) 5 %; Neutrophils # (A) 5.1 k/uL (1.3-7.7); Neutrophils % (A) 65 %; Platelet Count 158 k/uL (150-450); RDW 14.9 % (11.5-15.5); WBC 7.9 k/uL (3.8-10.6)
[2019-06-12 06:54] LABS: African American GFR (CKD) >90 (>60 ml/min/1.73 sqM); Anion Gap 9 mmol/L; Blood Urea Nitrogen 19 mg/dL (9-20); Calcium 9.9 mg/dL (8.4-10.2); Carbon Dioxide 30 mmol/L (22-30); Chloride 101 mmol/L (98-107); Glucose 99 mg/dL (74-99); Potassium 4.3 mmol/L (3.5-5.1); Sodium 140 mmol/L (137-145)
[2019-06-12] MEDS: HEPARIN SODIUM,PORCINE 5,000 UNIT/ML 1 ML VIAL SQ SCH ×2 (08:06→20:02)
[2019-06-12] MEDS: ASPIRIN 81 MG PO SCH (08:07)
[2019-06-12] MEDS: SODIUM CHLORIDE 0.9% 1,000 ML IV SCH ×2 (08:24→16:13)
[2019-06-12] MEDS: PANTOPRAZOLE 40 MG TABLET PO SCH (08:24)
[2019-06-12] MEDS ORDERED: fentaNYL (PF) 50 MCG/ML 2 ML AMP ONE (10:33)
[2019-06-12] MEDS ORDERED: IV FLUID CONTINUATION 200 ML IV ONE (10:41)
[2019-06-12] MEDS ORDERED: fentaNYL (PF) 50 MCG/ML 2 ML AMP IV ONE (12:18)
[2019-06-12] MEDS ORDERED: MIDAZOLAM (PF) 2 MG/2 ML VIAL IV ONE ×3 (12:18→12:30)
[2019-06-12] MEDS ORDERED: BENZOCAINE SPRAY 1 CAN MUCOUS MEM ONE (12:18)
--- NOTE | 2019-06-12 14:57 | PN ---
PROGRESS NOTE DATE OF SERVICE: 06/12/2019. This 43-year-old gentleman who was admitted with weakness of the right side also had possible syncope. The patient underwent a KARISHMA today. Final report is pending at this time. MRI is pending. No chest pain. No palpitations. No fever. On exam, alert and oriented x3. The pulse is 88, blood pressure 122/76, respirations 16, temperature 97.7, pulse ox 99% on 2 L. HEENT: Conjunctivae normal. NECK: No jugular venous distention. CARDIOVASCULAR SYSTEM: S1, S2 muffled. RESPIRATORY SYSTEM: Breath sounds diminished at the bases. No rhonchi. No crackles. ABDOMEN: Soft, non-tender. LEGS: No edema. No swelling. NERVOUS SYSTEM: Minimal weakness on the right side. Labs are noted. ASSESSMENT: 1. Weakness of the right side; possible acute transient ischemic attack or acute stroke on the left hemisphere. 2. Possible vasovagal syncope. 3. Tetrahydrocannabinol positive. 4. Hyperlipidemia and increased LDL. 5. History of cerebrovascular accident, transient ischemic attack with no residual deficits. 6. History of mitral valve prolapse. 7. History of pneumonia. 8. History of degenerative joint disease. 9. C1-C2 compression fracture history. 10.History of claustrophobia. 11.Depression. 12.Remote history of nicotine dependence. 13.NO CODE, NO CPR, NO VENT. RECOMMENDATIONS AND DISCUSSION: I recommend to continue current medications, continue with the monitoring, symptomatic treatment. Closely monitor. Guarded prognosis. Await MRI and KARISHMA reports. Further recommendations to follow. MMODL / IJN: [id number] /
[2019-06-12] MEDS: ATORVASTATIN 80 MG TAB PO SCH (20:02)
[2019-06-12 23:40] VITALS: RESP 16
[2019-06-13] MEDS: SODIUM CHLORIDE 0.9% 1,000 ML IV SCH ×2 (03:48→11:43)
[2019-06-13] MEDS: PANTOPRAZOLE 40 MG TABLET PO SCH (06:19)
[2019-06-13 07:20] LABS: Basophils % (A) 1 %; Eosinophils # (A) 0.3 k/uL (0-0.7); Eosinophils % (A) 3 %; HCT 49.5 % (39.0-53.0); HGB 16.9 gm/dL (13.0-17.5); Lymphocytes # (A) 1.9 k/uL (1.0-4.8); Lymphocytes % (A) 23 %; MCH 30.8 pg (25.0-35.0); MCHC 34.1 g/dL (31.0-37.0); MCV 90.5 fL (80.0-100.0); Monocytes # (A) 0.4 k/uL (0-1.0); Monocytes % (A) 4 %; Neutrophils # (A) 5.9 k/uL (1.3-7.7); Neutrophils % (A) 69 %; Platelet Count 168 k/uL (150-450); RBC 5.48 m/uL (4.30-5.90); RDW 15.2 % (11.5-15.5); WBC 8.6 k/uL (3.8-10.6)
[2019-06-13 07:33] LABS: African American GFR (CKD) >90 (>60 ml/min/1.73 sqM); Anion Gap 8 mmol/L; Blood Urea Nitrogen 20 mg/dL (9-20); Calcium 9.5 mg/dL (8.4-10.2); Carbon Dioxide 29 mmol/L (22-30); Chloride 103 mmol/L (98-107); Glucose 101 mg/dL (74-99); Potassium 4.5 mmol/L (3.5-5.1); Sodium 140 mmol/L (137-145)
[2019-06-13] MEDS: HEPARIN SODIUM,PORCINE 5,000 UNIT/ML 1 ML VIAL SQ SCH (08:19)
[2019-06-13] MEDS: ASPIRIN 81 MG PO SCH (08:19)
--- NOTE | 2019-06-13 09:28 | ECHOT ---
TRANSESOPHAGEAL ECHOCARDIOGRAM This patient was admitted with symptoms suggestive of possible transient ischemic attack. The patient gives a history that he had a prior stroke. However, brain MRI was negative. Patient's symptoms were not clear-cut in view of the questionable TIA. Patient was recommended to have a transesophageal echocardiogram to rule out any evidence of PFO. Patient was given intravenous sedation with Versed and fentanyl and transesophageal echocardiogram was performed without any complications. Left ventricular chamber is normal in size with normal left ventricular systolic functions. Left atrium, right atrium are normal in size. Mitral valve morphology is normal. There is no evidence of any mitral valve prolapse. Trace mitral regurgitation is noted. Aortic dejuan is normal. Tricuspid valve morphology is normal. Mild tricuspid regurgitation is noted. There is no evidence of thrombus in left atrial appendage. The interatrial septum is intact. There is no evidence of PFO by color Doppler or saline contrast study. FINAL IMPRESSION: 1. There is no evidence of any patent foramen ovale by saline contrast study or by color Doppler study. Interatrial septum is intact. 2. Left ventricular systolic function is normal. 3. Mitral, aortic, and tricuspid valve morphology is normal. Only trace mitral and mild tricuspid regurgitation are noted. There is no evidence of mitral valve prolapse. RECOMMENDATIONS: Medical treatment. MMODL / IJN: [id number] /
[2019-06-13 12:20] VITALS: BP 115/74; PULSE 85; TEMP 98.2
--- NOTE | 2019-06-13 13:58 | MR ---
EXAMINATION TYPE: MR brain wo/w con DATE OF EXAM: 06/13/2019 1:49 PM COMPARISON: Previous study dated 12/25/2016. HISTORY: Rt sided weakness, hx CVA TECHNIQUE: Multiplanar, multiecho imaging of the brain was obtained with and without intravenous adm inistration of 7.5 mL intravenous Gadavist. FINDINGS: Midline structures are unremarkable. There is a normal craniocervical junction. Echoplanar diffusion imaging is normal. There are normal vascular flow voids. The orbits are normal. There is no evidence of a CP angle mass lesion. No acute focal lesion, mass effect or midline shift is seen. I do not see evidence of intracranial bl ood. Following intravenous administration of gadolinium, I do not see evidence of abnormal enhancement. IMPRESSION: NORMAL MRI OF THE BRAIN.
--- NOTE | 2019-06-13 23:19 | DS ---
DISCHARGE SUMMARY DATE OF SERVICE: 06/13/2019. FINAL DIAGNOSES: 1. Weakness of the right side possible acute transient ischemic attack involving the left hemisphere. MRI showed no evidence of stroke. 2. Possible vasovagal syncope, improved. 3. History of THC. 4. Hyperlipidemia with increased LDL. 5. History of cerebrovascular accident, transient ischemic attack with no residual deficit. 6. History of mitral valve prolapse. 7. History of pneumonia. 8. History of degenerative joint disease. 9. C1-C2 compression fracture history. 10.History of claustrophobia. 11.Depression. 12.Remote history of nicotine dependence. 13.NO CODE, NO CPR and NO VENT. DISCHARGE DISPOSITION: The patient will be discharged in stable condition with guarded prognosis. Discharge cleared by neurology. HISTORY OF PRESENT ILLNESS: This 43-year-old gentleman with a past medical history of multiple medical problems, admitted with weakness of the right side of the body. Patient was closely monitored. MRI showed no evidence of stroke. Neurology recommend outpatient follow up. Otherwise neurovascular workup was also negative. The patient also had a KARISHMA because of history of mitral valve prolapse, but there was no evidence of mitral valve prolapse or any patent foramen ovale in the KARISHMA done by Cardiology. Overall patient made significant improvement. On exam vitals stable. Cardio system: S1, S2. Abdomen soft. Nervous system: Minimal weakness of the right hand. DISCHARGE ADVICE AND MEDICATIONS: 1. Diet is cardiac diet. 2. Activity limited until followup. 3. Follow up with Dr. Walter in 2-3 days. 4. Follow up with Neurology as recommended. DISCHARGE MEDICATIONS: 1. Aspirin 81 mg p.o. daily. 2. Lipitor 10 mg p.o. daily. 3. Tylenol 500 mg q.6h p.r.n. MMODL / IJN: [id number] /
== END 2019-06-13 15:49 | disposition home or self-care (01) | DRG 69 ==
LOC: EC 10:50 → 3SCARD 13:00
PROVIDERS: ADMIT Hospitalist; ATTEND Hospitalist
DX: G45.9 Transient cerebral ischemic attack, unspecified (principal); E78.5 Hyperlipidemia, unspecified; F12.90 Cannabis use, unspecified, uncomplicated; F32.9 Major depressive disorder, single episode, unspecified; I34.1 Nonrheumatic mitral (valve) prolapse; K21.9 Gastro-esophageal reflux disease without esophagitis; W18.30XA Fall on same level, unspecified, initial encounter; Y93.01 Activity, walking, marching and hiking; M54.5 Low back pain; M19.90 Unspecified osteoarthritis, unspecified site; Z82.3 Family history of stroke; Z79.82 Long term (current) use of aspirin; Z82.49 Family history of ischemic heart disease and other diseases of the circulatory system; Z86.73 Personal history of transient ischemic attack (TIA), and cerebral infarction without residual deficits; Z87.891 Personal history of nicotine dependence; Z87.01 Personal history of pneumonia (recurrent); Z98.890 Other specified postprocedural states
CPT/HCPCS: 36415; 70450; 70496; 70498; 70553; 71046; 80048; 80053; 80061; 80306; 81003; 82550; 83735; 84100; 84484; 85025; 85610; 85730; 93005; 93306; 93312; 93320; 93325; 96360; 96361; 99285

== ENCOUNTER 2020-06-01 11:11 | Emergency (ER) | payer OTHER ==
[2020-06-01 11:26] VITALS: TEMP 98.2
[2020-06-01] MEDS ORDERED: SODIUM CHLORIDE 0.9% 500 ML 500 ML IV STA (11:32)
[2020-06-01] MEDS ORDERED: SODIUM CHLORIDE 0.9% 1,000 ML IV STA (11:32)
[2020-06-01] MEDS ORDERED: ONDANSETRON 4 MG/2 ML VIAL IVP STA (11:32)
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
[2020-06-01 11:59] LABS: Basophils % (A) 0 %; Eosinophils # (A) 0.3 k/uL (0-0.7); Eosinophils % (A) 2 %; HCT 48.4 % (39.0-53.0); HGB 16.1 gm/dL (13.0-17.5); Lymphocytes # (A) 1.1 k/uL (1.0-4.8); Lymphocytes % (A) 6 %; MCH 29.7 pg (25.0-35.0); MCHC 33.2 g/dL (31.0-37.0); MCV 89.6 fL (80.0-100.0); Mean Platelet Volume 9.1; Monocytes # (A) 0.3 k/uL (0-1.0); Monocytes % (A) 2 %; Neutrophils # (A) 15.4 k/uL (1.3-7.7); Neutrophils % (A) 90 %; Platelet Count 193 k/uL (150-450); RDW 12.3 % (11.5-15.5); WBC 17.2 k/uL (3.8-10.6)
[2020-06-01 12:08] LABS: ALT 15 U/L (4-49); AST 15 U/L (17-59); African American GFR (CKD) >90 (>60 ml/min/1.73 sqM); Albumin 2.1 g/dL (3.5-5.0); Alkaline Phosphatase 47 U/L (38-126); Amylase <30 U/L (30-110); Anion Gap 3 mmol/L; Blood Urea Nitrogen 9 mg/dL (9-20); Carbon Dioxide 13 mmol/L (22-30); Chloride 126 mmol/L (98-107); Glucose 84 mg/dL (74-99); Non-African American GFR(CKD) >90 (>60 ml/min/1.73 sqM); Sodium 142 mmol/L (137-145); Total Bilirubin 0.5 mg/dL (0.2-1.3); Total Protein 3.9 g/dL (6.3-8.2)
[2020-06-01] MEDS: DIPHENOX-ATROP 2.5-0.025 MG 1 EACH TAB PO STA ×2 (12:17→12:25)
[2020-06-01 12:18] LABS: Calcium 5.2 mg/dL (8.4-10.2); Potassium 2.2 mmol/L (3.5-5.1)
[2020-06-01] MEDS ORDERED: DIPHENOX-ATROP 2.5-0.025 MG 1 EACH TAB PO STA (12:25)
[2020-06-01 13:00] VITALS: PULSE 88
[2020-06-01 13:17] LABS: Appearance,Urine Clear (Clear); Bilirubin,Urine Negative (Negative); Blood,Urine Negative (Negative); Color,Urine Yellow; Glucose,Urine (UA) Negative (Negative); Ketones,Urine 1+ (Negative); Leukocyte Esterase,Urine Negative (Negative); Nitrite,Urine Negative (Negative); PH, Urine 8.5 (5.0-8.0); Protein,Urine Trace (Negative); Specific Gravity,Urine 1.017 (1.001-1.035); Urobilinogen,Urine <2.0 mg/dL (<2.0)
[2020-06-01 13:24] LABS: ALT 29 U/L (4-49); AST 31 U/L (17-59); African American GFR (CKD) >90 (>60 ml/min/1.73 sqM); Albumin 4.8 g/dL (3.5-5.0); Alkaline Phosphatase 84 U/L (38-126); Anion Gap 11 mmol/L; Blood Urea Nitrogen 15 mg/dL (9-20); Calcium 9.3 mg/dL (8.4-10.2); Carbon Dioxide 23 mmol/L (22-30); Chloride 107 mmol/L (98-107); Glucose 115 mg/dL (74-99); Non-African American GFR(CKD) >90 (>60 ml/min/1.73 sqM); Sodium 141 mmol/L (137-145); Total Bilirubin 1.1 mg/dL (0.2-1.3); Total Protein 7.4 g/dL (6.3-8.2)
[2020-06-01 13:41] LABS: Potassium 4.8 mmol/L (3.5-5.1)
--- NOTE | 2020-06-01 13:43 | CT ---
EXAMINATION TYPE: CT abdomen pelvis w con DATE OF EXAM: 06/01/2020 COMPARISON: None HISTORY: Mid Abdominal pain with N/V/D. CT DLP: 919.2 mGycm CONTRAST: CT scan of the abdomen and pelvis is performed without Oral Contrast and with IV Contrast, patient in jected with 100 mL of Isovue 300. FINDINGS: LUNG BASES-: No visible nodule. No infiltrate. LIVER/GB: No calcified gallstones. No space occupying hepatic lesion. Biliary tree is of normal ca liber. PANCREAS: No inflammation. No distinct mass. SPLEEN: No splenic enlargement. No lesion seen. ADRENALS: No nodule. No thickening. KIDNEYS/BLADDER: No hydronephrosis. No nephrolithiasis. No distinct renal mass. Urinary bladder g rossly unremarkable. BOWEL: Normal appendix. There is contiguous wall thickening from the mid transverse colon through the sigmoid colon felt to reflect nonspecific colitis with differential diagnostic possibilities includi ng the various inflammatory, infectious and less likely vascular etiologies. No evidence for free air or abscess. GENITAL ORGANS: No gross abnormality. LYMPH NODES: No greater than 1cm abdominal or pelvic lymph nodes are appreciated. AORTA: No significant abnormality. OSSEOUS STRUCTURES: No significant abnormality is seen. OTHER: No significant additional abnormality is seen. IMPRESSION: 1. There is contiguous wall thickening from the mid transverse colon through the sigmoid colon felt t o reflect nonspecific colitis with differential diagnostic possibilities including the various inflam matory, infectious and less likely vascular etiologies.
[2020-06-01 14:03] VITALS: BP 120/75; RESP 16
== END 2020-06-01 14:01 | disposition home or self-care (01) ==
LOC: EC 11:11
DX: K52.9 Noninfective gastroenteritis and colitis, unspecified (principal); Z86.73 Personal history of transient ischemic attack (TIA), and cerebral infarction without residual deficits
CPT/HCPCS: 36415; 80053; 82150; 83690; 85025; 81003; 74177; 99284; 96374; 96361 ×2; J2405; Q9967

== ENCOUNTER 2021-05-05 08:54 | Observation (INO) | payer OTHER ==
[2021-05-05 09:10] LABS: Glucose,Whole Blood 138 mg/dL (75-99)
[2021-05-05 09:21] VITALS: RESP 18
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
[2021-05-05 09:42] LABS: Basophils % (A) 1 %; Eosinophils # (A) 0.2 k/uL (0-0.7); Eosinophils % (A) 4 %; HCT 46.8 % (39.0-53.0); Lymphocytes # (A) 1.3 k/uL (1.0-4.8); Lymphocytes % (A) 21 %; MCH 31.5 pg (25.0-35.0); MCHC 34.2 g/dL (31.0-37.0); MCV 92.1 fL (80.0-100.0); Mean Platelet Volume 9.4; Monocytes # (A) 0.2 k/uL (0-1.0); Monocytes % (A) 4 %; Neutrophils # (A) 4.3 k/uL (1.3-7.7); Neutrophils % (A) 70 %; Platelet Count 153 k/uL (150-450); RBC 5.08 m/uL (4.30-5.90); RDW 12.9 % (11.5-15.5); WBC 6.2 k/uL (3.8-10.6)
[2021-05-05 09:47] LABS: INR 0.9 (<1.2)
[2021-05-05 09:48] LABS: Partial Thromboplastin Time 23.5 sec (22.0-30.0); Prothrombin Time 10.1 sec (9.0-12.0)
[2021-05-05 09:53] LABS: ALT 27 U/L (4-49); AST 31 U/L (17-59); African American GFR (CKD) >90 (>60 ml/min/1.73 sqM); Albumin 4.7 g/dL (3.5-5.0); Alkaline Phosphatase 74 U/L (38-126); Anion Gap 10 mmol/L; Blood Urea Nitrogen 9 mg/dL (9-20); Calcium 9.5 mg/dL (8.4-10.2); Carbon Dioxide 23 mmol/L (22-30); Chloride 107 mmol/L (98-107); Glucose 145 mg/dL (74-99); Non-African American GFR(CKD) >90 (>60 ml/min/1.73 sqM); Potassium 4.2 mmol/L (3.5-5.1); Sodium 140 mmol/L (137-145); Total Bilirubin 1.6 mg/dL (0.2-1.3); Total Protein 7.3 g/dL (6.3-8.2)
--- NOTE | 2021-05-05 09:55 | CT ---
EXAMINATION TYPE: CT brain wo con for TPA DATE OF EXAM: 05/05/2021 COMPARISON: 06/10/2019 HISTORY: code stroke CT DLP: 1099.4 mGycm Automated exposure control for dose reduction was used. FINDINGS: There is no acute intracranial hemorrhage, mass effect, or midline shift identified. The ventricles and sulci are within normal limits in size. The globes are intact and the visualized sinuses are sulema ar. Nasal septal deviation. Orbits symmetric. Calcification the medial left temporal lobe stable from prior exam of 2019. Cerebellar tonsils low-lying in position. IMPRESSION: No acute intracranial hemorrhage, mass effect, or midline shift is seen.
--- NOTE | 2021-05-05 10:41 | XR ---
EXAMINATION TYPE: XR chest 2V DATE OF EXAM: 05/05/2021 COMPARISON: 06/10/2019 INDICATION: Weakness altered mental status TECHNIQUE: Frontal and lateral views of the chest are obtained. FINDINGS: The heart size is normal. The pulmonary vasculature is normal. The lungs are clear. IMPRESSION: 1. No acute pulmonary process.
--- NOTE | 2021-05-05 10:53 | CT ---
EXAMINATION TYPE: CT angio head neck DATE OF EXAM: 05/05/2021 COMPARISON: CT same day and prior angiography 06/10/2019 HISTORY: 45-year-old male neurologic deficit, acute, stroke suspected. CODE STROKE, HISTORY OF STROKE * 2 TECHNIQUE: Contiguous axial scanning of the head and neck performed with IV Contrast, patient injecte d with 65 ML mL of Isovue 370. Coronal/sagittal MIP reconstructions performed. 3-D reconstructions ge nerated on a dedicated independent workstation. CT DLP: 595.5 mGycm Automated exposure control for dose reduction was used. FINDINGS: Neck: Conventional arch vessel branching anatomy. The vertebral arteries are codominant and patent throughout their course. The bilateral common and bilateral internal carotid arteries are widely patent by NASCET criteria. Incidental leftward nasal septal deviation. Brain: The vertebral, basilar, and internal carotid arteries are patent. The remainder of the anterior and posterior circulation are patent. No aneurysmal changes identified. IMPRESSION: 1. NECK: WIDELY PATENT CAROTID AND VERTEBRAL ARTERIES OF THE NECK. 2. BRAIN: NO LARGE VESSEL INTRACRANIAL ARTERIAL OCCLUSION, SIGNIFICANT STENOSIS, OR ANEURYSMAL CHANGE IS SEEN.
[2021-05-05] MEDS ORDERED: ASPIRIN 325 MG TAB PO STA (11:08)
[2021-05-05] MEDS ORDERED: SODIUM CHLORIDE 0.9% 1,000 ML IV SCH (11:15)
[2021-05-05] MEDS ORDERED: CLOPIDOGREL 75 MG TAB PO SCH (15:15)
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
[2021-05-05 16:43] VITALS: BP 123/85; PULSE 90; TEMP 98.2
--- NOTE | 2021-05-05 17:41 | ECHOF ---
Referral Reason:Thrombus MEASUREMENTS -------- HEIGHT: 175.3 cm WEIGHT: 81.6 kg BP: 122/93 RVIDd: 3.5 cm (< 3.3) IVSd: 1.0 cm (0.6 - 1.1) LVIDd: 4.3 cm (3.9 - 5.3) LVPWd: 0.9 cm (0.6 - 1.1) IVSs: 1.3 cm LVIDs: 3.4 cm LVPWs: 1.3 cm LA Diam: 3.0 cm (2.7 - 3.8) LAESV Index (A-L): 12.82 ml/m Ao Diam: 2.8 cm (2.0 - 3.7) AV Cusp: 2.3 cm (1.5 - 2.6) MV EXCURSION: 16.399 mm (> 18.000) MV EF SLOPE: 141 mm/s (70 - 150) EPSS: 0.7 cm MV E Osman: 0.86 m/s MV DecT: 323 ms MV A Osman: 0.60 m/s MV E/A Ratio: 1.44 RAP: 5.00 mmHg RVSP: 14.20 mmHg TAPSE: 18.82 mm FINDINGS -------- Sinus rhythm. This was a technically adequate study. The left ventricular size is normal. Left ventricular wall thickness is normal. Overall left vent ricular systolic function is normal with, an EF between 55 - 60 %. The right ventricle is mildly enlarged. Normal LA size by volume 22+/-6 ml/m2. The right atrial size is normal. Interatrial and interventricular septum intact. The aortic valve is trileaflet, and appears structurally normal. No aortic stenosis or regurgitation. The mitral valve is normal. There is trace to mild mitral regurgitation. The tricuspid valve appears structurally normal. Trace tricuspid regurgitation present. Right haley tricular systolic pressure is normal at < 35 mmHg. Trace/mild (physiologic) pulmonic regurgitation. The aortic root size is normal. Normal inferior vena cava with normal inspiratory collapse consistent with estimated right atrial pre ssure of 5 mmHg. There is no pericardial effusion. CONCLUSIONS -------- 1. Left ventricular wall thickness is normal. 2. Overall left ventricular systolic function is normal with, an EF between 55 - 60 %. 3. The right ventricle is mildly enlarged. 4. Normal LA size by volume 22+/-6 ml/m2. 5. The aortic valve is trileaflet, and appears structurally normal. No aortic stenosis or regurgitati on. 6. There is trace to mild mitral regurgitation. 7. Trace tricuspid regurgitation present. 8. Trace/mild (physiologic) pulmonic regurgitation. 9. There is no pericardial effusion. HARNESS AND BAG INSPECTOR: Daniela Kelly RDCS
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
[2021-05-05] MEDS ORDERED: ATORVASTATIN 40 MG TAB PO SCH (21:00)
[2021-05-06] MEDS ORDERED: ASPIRIN 325 MG TAB PO SCH (09:00)
[2021-05-06] MEDS ORDERED: ASPIRIN 81 MG PO SCH (09:00)
== END 2021-05-05 16:35 | disposition home or self-care (01) ==
LOC: EC 08:54 → INTOOBSV 11:08 → 3SCARD 11:08 → UNDODISIN 16:35
PROVIDERS: ADMIT Internal Medicine; ATTEND Internal Medicine
DX: I63.9 Cerebral infarction, unspecified (principal); R29.701 NIHSS score 1; I69.351 Hemiplegia and hemiparesis following cerebral infarction affecting right dominant side; F12.90 Cannabis use, unspecified, uncomplicated; F32.9 Major depressive disorder, single episode, unspecified; Z20.822 Contact with and (suspected) exposure to COVID-19; G89.29 Other chronic pain; M54.2 Cervicalgia; M54.9 Dorsalgia, unspecified; I34.1 Nonrheumatic mitral (valve) prolapse; M65.312 Trigger thumb, left thumb; F40.240 Claustrophobia; Z79.02 Long term (current) use of antithrombotics/antiplatelets; Z79.82 Long term (current) use of aspirin; Z79.899 Other long term (current) drug therapy; Z87.01 Personal history of pneumonia (recurrent); Z87.81 Personal history of (healed) traumatic fracture; Z82.49 Family history of ischemic heart disease and other diseases of the circulatory system
CPT/HCPCS: 99285; 96360; 96361; 36415; 93005; 93306; 80053; 84484; 85025; 85610; 85730; 71046; 70496; 70450; 70498; G0378; Q9967

== ENCOUNTER 2021-10-18 08:32 | Inpatient (IN) | payer OTHER ==
--- NOTE | 2021-10-18 09:46 | CT ---
EXAMINATION TYPE: CT brain wo con DATE OF EXAM: 10/18/2021 COMPARISON: 05/05/2021 HISTORY: Neuro deficit, acute, stroke suspected CT DLP: 1112.8 mGycm. Automated Exposure Control for Dose Reduction was Utilized. TECHNIQUE: CT scan of the head is performed without contrast. FINDINGS: There is no acute intracranial hemorrhage, mass effect, or midline shift identified. The ventricles and sulci are within normal limits in size. The globes are intact and the visualized sinus es are clear. 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 Nasal septal deviation. Orbits symmetric. Calcification a nd the medial left temporal lobe stable from prior exam of 2019. Cerebellar tonsils low-lying in posi tion. . IMPRESSION: 1. No acute intracranial hemorrhage, mass effect, or midline shift is seen. If concern for acute isch emia correlate with MRI as clinically warranted. 2. Low-lying cerebellar tonsils correlate for Chiari malformation.
[2021-10-18 10:12] LABS: Basophils % (A) 0 %; Eosinophils # (A) 0.1 k/uL (0-0.7); Eosinophils % (A) 1 %; HCT 45.4 % (39.0-53.0); HGB 15.5 gm/dL (13.0-17.5); Lymphocytes % (A) 14 %; MCH 31.8 pg (25.0-35.0); MCHC 34.2 g/dL (31.0-37.0); MCV 92.9 fL (80.0-100.0); Mean Platelet Volume 9.3; Monocytes # (A) 0.2 k/uL (0-1.0); Monocytes % (A) 3 %; Neutrophils # (A) 5.7 k/uL (1.3-7.7); Neutrophils % (A) 80 %; Platelet Count 161 k/uL (150-450); RBC 4.88 m/uL (4.30-5.90); RDW 12.1 % (11.5-15.5); WBC 7.2 k/uL (3.8-10.6)
--- NOTE | 2021-10-18 10:12 | CT ---
EXAMINATION TYPE: CT angio head neck DATE OF EXAM: 10/18/2021 HISTORY: Neuro deficit, acute, stroke suspected COMPARISON: CT brain 10/18/2021, prior CT angiogram 05/05/2021 CT DLP: 561.4 mGycm. Automated Exposure Control for Dose Reduction was Utilized. TECHNIQUE: CTA scan of the neck and brain is performed with IV Contrast, patient injected with 65ml mL of Isovue 370, axial images are obtained, coronal and sagittal reformatted images are reviewed. 3D reconstructed images are created on an independent workstation and reviewed. FINDINGS: Carotid/Vascular Structures: Stable, no evident aneurysm, dissection, or embolus, no evident signific ant stenosis. Other: Probable polyp or mucous retention cyst within the left maxillary sinus IMPRESSION: No significant abnormality is seen. NASCET criteria was used in interpretation of this exam?
[2021-10-18 10:23] LABS: ALT 35 U/L (4-49); AST 29 U/L (17-59); African American GFR (CKD) >90 (>60 ml/min/1.73 sqM); Albumin 4.7 g/dL (3.5-5.0); Alkaline Phosphatase 77 U/L (38-126); Anion Gap 10 mmol/L; Blood Urea Nitrogen 14 mg/dL (9-20); Carbon Dioxide 25 mmol/L (22-30); Chloride 107 mmol/L (98-107); Glucose 102 mg/dL (74-99); Non-African American GFR(CKD) 81 (>60 ml/min/1.73 sqM); Sodium 142 mmol/L (137-145); Total Bilirubin 1.8 mg/dL (0.2-1.3); Total Protein 7.4 g/dL (6.3-8.2)
[2021-10-18] MEDS ORDERED: ASPIRIN 325 MG TAB PO STA (10:23)
[2021-10-18 10:24] LABS: Calcium 9.7 mg/dL (8.4-10.2)
[2021-10-18 10:55] LABS: INR 0.9 (<1.2); Partial Thromboplastin Time 23.7 sec (22.0-30.0)
[2021-10-18] MEDS ORDERED: SODIUM CHLORIDE 0.9% 1,000 ML IV SCH (11:00)
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
--- NOTE | 2021-10-18 13:11 | P.DS ---
Providers Date of admission: 10/18/21 10:59 Attending physician: Linda Mac Consults: 10/18/21 11:00 Consult Physician Routine Consulting Provider: Marito Vance Consult Reason/Comments: CVA Do you want consulting provider notified?: Yes Primary care physician: S[facility] Course: Refer to history of present illness for further details Patient Condition at Discharge: Stable Plan - Discharge Summary New Discharge Prescriptions: New Aspirin 81 mg PO DAILY #30 tab Discharge Medication List Aspirin 81 mg PO DAILY #30 tab 10/18/21 [Rx] Follow up Appointment(s)/Referral(s): Diamond Walter MD [Primary Care Provider] - 3 Days Marito Epps MD [STAFF PHYSICIAN] - 1 Week Discharge Disposition: HOME SELF-CARE
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
--- NOTE | 2021-10-18 16:15 | MR ---
EXAMINATION TYPE: MR brain/cspine wo/w DATE OF EXAM: 10/18/2021 COMPARISON: Prior CT brain from earlier today. Prior MRI brain November 04, 2015. Prior CT cervical sp ine December 18, 2017 HISTORY: Right sided weakness with paresthesia. TECHNIQUE: Multiplanar, multisequence images of the brain and brainstem and cervical spine are all performed wit hout and with IV contrast, utilizing 8 mL intravenous Gadavist . FINDINGS: Diffusion weighted images demonstrate no evidence of a recent infarct or other diffusion ab normality. There is no extra-axial fluid collection or significant white matter signal abnormality. The ventricular system and cisternal spaces are normal in size and appearance. The brain volume is age appropriate. T2 Star weighted images show no suspicious intraparenchymal blood product Midline structures demonstrate normal morphology. The craniocervical junction appears within normal limits. Post contrast images demonstrate no abnormal enhancement. The dural venous sinuses appear pa tent. The visualized sinuses are clear and the globes are intact. Nasal septum remains deviated to le ft of midline. IMPRESSION: No MRI evidence for recent infarct. Unremarkable study. No significant change from prior studies. C-SPINE: FINDINGS: Sagittal images of the cervical spine show the craniocervical junction to remain within nor mal limits. The cervical and upper thoracic spinal cord is normal in course, caliber, and signal. V ertebral alignment is stable and satisfactory. The vertebral body and intravertebral disk heights ar e normal. The bone marrow signal intensity is within normal limits. No abnormal postcontrast enhance ment is seen. Axial images show show no large disc herniation, significant spinal canal effacement, or significant neural foraminal narrowing, or spinal cord compromise at any cervical level. IMPRESSION: Unremarkable study.
[2021-10-18 17:03] VITALS: BP 124/84; PULSE 81; RESP 18; TEMP 98.9
[2021-10-19] MEDS ORDERED: ASPIRIN 325 MG TAB PO SCH (09:00)
== END 2021-10-18 18:38 | disposition home or self-care (01) | DRG 57 ==
LOC: EC 08:32 → 3SCARD 10:59
PROVIDERS: ADMIT Internal Medicine; ATTEND Internal Medicine
DX: G81.91 Hemiplegia, unspecified affecting right dominant side (principal); F43.0 Acute stress reaction; F32.A Depression, unspecified; R20.2 Paresthesia of skin; R20.0 Anesthesia of skin; I34.1 Nonrheumatic mitral (valve) prolapse; G89.29 Other chronic pain; M54.2 Cervicalgia; Z91.14 Patient's other noncompliance with medication regimen; Z86.73 Personal history of transient ischemic attack (TIA), and cerebral infarction without residual deficits; Z79.02 Long term (current) use of antithrombotics/antiplatelets; Z79.82 Long term (current) use of aspirin; Z79.899 Other long term (current) drug therapy; Z82.49 Family history of ischemic heart disease and other diseases of the circulatory system
CPT/HCPCS: 36415; 70450; 70496; 70498; 70553; 72156; 80053; 84484; 85025; 85610; 85730; 93005; 96360; 96361; 99285

== ENCOUNTER 2023-03-03 13:35 | Emergency (ER) | payer OTHER ==
[2023-03-03] MEDS ORDERED: DIPH,PERTUS(ACELL)TETVAC-LF 0.5 ML VIAL IM ONE (14:05)
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
--- NOTE | 2023-03-03 14:39 | CT ---
EXAMINATION TYPE: CT brain [facility] DATE OF EXAM: 03/03/2023 COMPARISON: 10/18/2021 HISTORY: fall, hx of cva CT DLP: 1585.[address] Brain: Unenhanced CT of the brain was performed. The ventricles, basal cisterns and sulci overlying the cerebral convexities demonstrate a normal appe arance. There is no evidence for intracranial hemorrhage or sulcal effacement. No mass effects are seen. If symptoms persist consider MRI. Osseous calvarium is intact. IMPRESSION: No acute intracranial process CT Cervical Spine: Unenhanced CT of the cervical spine was performed with bone and soft tissue window settings submitted . Coronal and sagittal reconstruction is obtained. There is normal alignment and prevertebral soft tissues. I do not see evidence for fracture or sublu xation. No significant degenerative changes are present. The lung apices are clear. IMPRESSION: No evidence for acute fracture or subluxation of the cervical spine.
[2023-03-03] MEDS ORDERED: IBUPROFEN 600 MG STARTER PACK 4 TAB BTL PO STA (15:00)
[2023-03-03 16:04] VITALS: BP 118/76; PULSE 72; RESP 16; TEMP 97.9
== END 2023-03-03 16:06 | disposition home or self-care (01) ==
LOC: EC 13:35
DX: S09.90XA Unspecified injury of head, initial encounter (principal); F12.90 Cannabis use, unspecified, uncomplicated; Z86.59 Personal history of other mental and behavioral disorders; Z23 Encounter for immunization; W06.XXXA Fall from bed, initial encounter
CPT/HCPCS: 70450; 72125; 90471; 90715; 99284